=== PATIENT | male | born 1935 | race Caucasian/White ===

== ENCOUNTER 2016-10-31 | Outpatient (CLI) | payer MEDICARE, OTHER | END 2016-10-31 22:33 | disposition critical access hospital (66) | CPT/HCPCS: A0425; A0429 ==

== ENCOUNTER 2016-10-31 22:32 | Emergency (ER) | payer MEDICARE, OTHER | END 2016-11-01 01:50 | disposition home or self-care (01) | DX: R41.82 Altered mental status, unspecified (principal); I10 Essential (primary) hypertension; E10.42 Type 1 diabetes mellitus with diabetic polyneuropathy; Z87.891 Personal history of nicotine dependence; Z79.4 Long term (current) use of insulin ==

== ENCOUNTER 2016-11-22 11:10 | Outpatient (CLI) | payer MEDICARE, OTHER | END 2016-11-22 11:11 | disposition home or self-care (01) | DX: E11.621 Type 2 diabetes mellitus with foot ulcer (principal); E11.39 Type 2 diabetes mellitus with other diabetic ophthalmic complication; I10 Essential (primary) hypertension ==

== ENCOUNTER 2017-01-31 08:08 | Outpatient (CLI) | payer MEDICARE, OTHER | END 2017-01-31 08:09 | disposition home or self-care (01) | DX: E11.39 Type 2 diabetes mellitus with other diabetic ophthalmic complication (principal) ==

== ENCOUNTER 2017-04-21 07:51 | Outpatient (CLI) | payer MEDICARE, OTHER ==
[2017-04-21 16:12] LABS: ALBUMIN/GLOBULIN RATIO 1.1 (1.0-2.2); BILIRUBIN,TOTAL 0.8 mg/dL (0.2-1.0); CALCIUM 8.8 mg/dL (8.5-10.3); CREATININE 1.1 mg/dL (0.6-1.2); POTASSIUM 4.2 mmol/L (3.5-5.0)
[2017-04-21 16:33] LABS: HEMOGLOBIN A1C 0.68 g/dL
== END 2017-04-21 07:52 | disposition home or self-care (01) ==
LOC: LAB.WCP 07:51
PROVIDERS: ATTEND Family Medicine
DX: E11.39 Type 2 diabetes mellitus with other diabetic ophthalmic complication (principal)
CPT/HCPCS: 36415; 80053; 83036

== ENCOUNTER 2017-06-12 09:55 | Outpatient (CLI) | payer MEDICARE, OTHER | END 2017-06-12 09:56 | disposition home or self-care (01) | LOC: LAB.WCP 09:55 | PROVIDERS: ATTEND Family Medicine | DX: L97.809 Non-pressure chronic ulcer of other part of unspecified lower leg with unspecified severity (principal) | CPT/HCPCS: 87070; 87205 ==

== ENCOUNTER 2017-07-30 12:58 | Outpatient (CLI) | payer MEDICARE, OTHER ==
[2017-07-30 12:41] LABS: BASOPHILS % (AUTO) 0.6 %; EOSINOPHILS # (AUTO) 0.4 10^3/uL (0.0-0.7); EOSINOPHILS % (AUTO) 6.5 %; HCT - HEMATOCRIT 36.6 % (42.0-52.0); HGB - HEMOGLOBIN 12.2 g/dL (14.0-18.0); LYMPHOCYTES # (AUTO) 1.6 10^3/uL (1.5-3.5); LYMPHOCYTES % (AUTO) 29.5 %; MEAN CORPUSCULAR HEMOGLOBIN 31.3 pg (27.0-31.0); MEAN CORPUSCULAR HGB CONC 33.4 g/dL (32.0-36.0); MEAN CORPUSCULAR VOLUME 93.6 fL (80.0-94.0); MEAN PLATELET VOLUME 11.5 fL (7.4-11.4); MONOCYTES # (AUTO) 0.5 10^3/uL (0.0-1.0); MONOCYTES % (AUTO) 9.4 %; NEUTROPHILS # (AUTO) 2.9 10^3/uL (1.5-6.6); RED CELL DISTRIBUTION WIDTH 13.6 % (12.0-15.0); UNCORRECTED WHITE BLOOD COUNT 5.4 x10^3/uL; WHITE BLOOD COUNT 5.4 x10^3/uL (4.8-10.8)
[2017-07-30 13:07] LABS: WBC MORPHOLOGY (MULTIPLE) 1+ REACTIVE LYMPHS (NORMAL)
[2017-07-30 13:12] LABS: ALBUMIN/GLOBULIN RATIO 1.2 (1.0-2.2); BILIRUBIN,TOTAL 0.7 mg/dL (0.2-1.0); BUN - BLOOD UREA NITROGEN 23 mg/dL (6-20); CALCIUM 8.9 mg/dL (8.5-10.3); CARBON DIOXIDE - CO2 29 mmol/L (21-32); CHLORIDE 100 mmol/L (101-111); CHOL/HDL RATIO 2.5 (<5.0); CHOLESTEROL 78 mg/dL; CREATININE 1.1 mg/dL (0.6-1.2); GFR - MDRD 64 (>89); GLUCOSE 215 mg/dL (70-100); HDL CHOLESTEROL 31 mg/dL; LDL/HDL RATIO 1.2 (<3.6); POTASSIUM 4.2 mmol/L (3.5-5.0); SODIUM 135 mmol/L (135-145); TRIGLYCERIDES 45 mg/dL; VLDL CHOLESTEROL 9 mg/dL
[2017-07-30 13:15] LABS: HEMOGLOBIN A1C 0.74 g/dL
== END 2017-07-30 12:59 | disposition home or self-care (01) ==
LOC: LAB.WCP 12:58
PROVIDERS: ATTEND Family Medicine
DX: I10 Essential (primary) hypertension (principal); E11.9 Type 2 diabetes mellitus without complications; E78.5 Hyperlipidemia, unspecified
CPT/HCPCS: 36415; 80053; 80061; 83036; 85025

== ENCOUNTER 2017-09-02 20:28 | Outpatient (CLI) | payer MEDICARE, OTHER | END 2017-09-02 20:29 | disposition EMS.NT | LOC: EMS 20:28 | PROVIDERS: ATTEND Surgery | DX: Z03.89 Encounter for observation for other suspected diseases and conditions ruled out (principal); W01.0XXA Fall on same level from slipping, tripping and stumbling without subsequent striking against object, initial encounter; Y92.003 Bedroom of unspecified non-institutional (private) residence as the place of occurrence of the external cause ==

== ENCOUNTER 2017-10-28 08:00 | Outpatient (CLI) | payer MEDICARE, OTHER ==
[2017-10-28 13:00] LABS: CREATININE 1.1 mg/dL (0.6-1.2)
[2017-10-28 14:15] LABS: HB2 TOTAL 12.7 g/dL; HEMOGLOBIN A1C 1.14 g/dL; HEMOGLOBIN A1C % 10.4 % (4.6-6.2)
== END 2017-10-28 08:01 | disposition home or self-care (01) ==
LOC: LAB.WCP 08:00
PROVIDERS: ATTEND Family Medicine
DX: E11.9 Type 2 diabetes mellitus without complications (principal); L97.822 Non-pressure chronic ulcer of other part of left lower leg with fat layer exposed
CPT/HCPCS: 36415; 80048; 83036

== ENCOUNTER 2018-01-05 00:03 | Outpatient (CLI) | payer MEDICARE, OTHER | END 2018-01-05 00:04 | disposition critical access hospital (66) | LOC: EMS 00:03 | PROVIDERS: ATTEND Surgery | DX: R53.1 Weakness (principal) | CPT/HCPCS: A0425; A0427 ==

== ENCOUNTER 2018-01-05 00:22 | Emergency (ER) | payer MEDICARE, OTHER ==
--- NOTE | 2018-01-05 01:05 | ED Physician Documentation ---
History of Present Illness - Stated complaint Stated Complaint: HYPOGLYCEMIA - Chief complaint Chief Complaint: General - History obtained from History obtained from: Patient, Family - History of Present Illness Timing: Today Pain level now: 0 - Additonal information Additional information: patient checked his blood sugar tonight as per routine, found it to be 66, took his long-acting insulin and had a snack. he does not recall subsequent events until medics were treating him, but staff found him confused, BS was 24 (it is not clear how staff was notified of a problem, as he is independent living, lives alone, and does not recall pulling help cord or notifying anyone of a problem). 911 was called and IV started, 1 amp D50 given with return to baseline level of consciousness and recheck of BS in 170 range Review of Systems Constitutional: reports: Reviewed and negative Cardiac: reports: Reviewed and negative Respiratory: reports: Reviewed and negative GI: reports: Reviewed and negative : denies: Dysuria, Frequency Neurologic: reports: Confused, Altered mental status. denies: Generalized weakness, Focal weakness, Numbness, Headache PD PAST MEDICAL HISTORY - Past Medical History Cardiovascular: Hypertension Respiratory: Other Neuro: Peripheral neuropathy Endocrine/Autoimmune: Type 1 diabetes GI: Ulcers : Benign prostate hypertrophy, None, Incontinence, Nocturia HEENT: Chronic vision loss Psych: None Musculoskeletal: None, Other Derm: None Other Past Medical History: hx of TB. - Past Surgical History Past Surgical History: Yes General: Cholecystectomy, Other Ortho: Other HEENT: Cataracts - Present Medications Home Medications: Ambulatory Orders Medication Instructions Recorded Confirmed Losartan Potassium [Cozaar] 50 mg PO BID 03/31/13 10/31/16 Simvastatin [Zocor] 20 mg PO QPM 03/31/13 10/31/16 Insulin Aspart (Vial) [NovoLOG] 10 - 13 units SUBQ TIDWM 12/30/14 10/31/16 Insulin Glargine,Hum.rec.anlog 20 units SUBQ BID 12/30/14 10/31/16 [Lantus] Carvedilol [Coreg] 6.25 mg PO BID 09/26/15 10/31/16 Cholecalciferol (Vitamin D3) 400 units PO DAILY 08/02/16 10/31/16 [Vitamin D3] raNITIdine [Zantac] 150 mg PO BID 10/31/16 10/31/16 - Allergies Allergies/Adverse Reactions: Allergies Allergy/AdvReac Type Severity Reaction Status Date / Time cortisone [Cortisone] AdvReac Intermediate Respiratory Verified 01/05/18 00:28 - Social History Does the pt smoke?: No Smoking Status: Never smoker Does the pt drink ETOH?: No Does the pt have substance abuse?: No - Immunizations Immunizations are current?: Yes - POLST Patient has POLST: No PD ED PE NORMAL - Vitals Vital signs reviewed: Yes - General General: Alert and oriented X 3, No acute distress, Well developed/nourished - HEENT HEENT: PERRL, EOMI, Moist mucous membranes - Neck Neck: Supple, no meningeal sign - Cardiac Cardiac: RRR, No murmur - Respiratory Respiratory: No respiratory distress, Other (trace right-sided course breath sounds end-expiratory) - Abdomen Abdomen: Soft, Non tender - Derm Derm: Normal color, Warm and dry - Extremities Extremities: No edema - Neuro Neuro: Alert and oriented X 3, toeing stockings 2-12 intact, No motor deficit, No sensory deficit, Normal speech Eye Opening: Spontaneous Motor: Obeys Commands Verbal: Oriented GCS Score: 15 Results - Vitals Vitals: Oxygen O2 Source Room air - Labs Labs: Laboratory Tests 01/04/18 01/05/18 01/05/18 23:28 01:36 01:36 WBC 8.2 RBC 4.01 L Hgb 12.2 L Hct 37.6 L MCV 93.7 MCH 30.4 MCHC 32.4 RDW 14.3 Plt Count 130 MPV 10.3 Neut # 6.1 Lymph # 1.3 L Beaver # 0.6 Eos # 0.2 Baso # 0.0 Absolute Nucleated RBC 0.00 Nucleated RBC % 0.0 Sodium 138 Potassium 3.8 Chloride 102 Carbon Dioxide 27 Anion Gap 9.0 BUN 28 H Creatinine 1.2 Estimated GFR (MDRD) 58 L Glucose 107 H POC Whole Bld Glucose 101 H Calcium 8.8 01/05/18 02:02 WBC RBC Hgb Hct MCV MCH MCHC RDW Plt Count MPV Neut # Lymph # Beaver # Eos # Baso # Absolute Nucleated RBC Nucleated RBC % Sodium Potassium Chloride Carbon Dioxide Anion Gap BUN Creatinine Estimated GFR (MDRD) Glucose POC Whole Bld Glucose 174 H Calcium PD MEDICAL DECISION MAKING - ED course Complexity details: reviewed results, re-evaluated patient, considered differential, d/w patient, d/w family ED course: remained asymptomatic during ED stay. unremarkable w/u. unclear why his blood sugar dropped tonight, but observed in ED few hours and discharge home with outpatient f/u appropriate at this time Departure - Departure Disposition: 01 Home, Self Care Clinical Impression: Hypoglycemia associated with diabetes Condition: Good Instructions: ED Diabetes Hypoglycemia Insulin React Follow-Up: Michael Bullard MD [Primary Care Provider] - Comments: Contact your professor of poultry science for advice as to whether to change your insulin dosing. Discharge Date/Time: 01/05/18 03:48
[2018-01-05 01:40] LABS: BASOPHILS % (AUTO) 0.5 %; EOSINOPHILS # (AUTO) 0.2 10^3/uL (0.0-0.7); EOSINOPHILS % (AUTO) 2.6 %; HGB - HEMOGLOBIN 12.2 g/dL (14.0-18.0); LYMPHOCYTES # (AUTO) 1.3 10^3/uL (1.5-3.5); LYMPHOCYTES % (AUTO) 15.3 %; MEAN CORPUSCULAR HEMOGLOBIN 30.4 pg (27.0-31.0); MEAN CORPUSCULAR HGB CONC 32.4 g/dL (32.0-36.0); MEAN CORPUSCULAR VOLUME 93.7 fL (80.0-94.0); MEAN PLATELET VOLUME 10.3 fL (7.4-11.4); MONOCYTES # (AUTO) 0.6 10^3/uL (0.0-1.0); MONOCYTES % (AUTO) 7.6 %; NEUTROPHILS # (AUTO) 6.1 10^3/uL (1.5-6.6); PLT - PLATELET COUNT 130 10^3/uL (130-450); RED BLOOD COUNT 4.01 10^6/uL (4.70-6.10); RED CELL DISTRIBUTION WIDTH 14.3 % (12.0-15.0); WHITE BLOOD COUNT 8.2 x10^3/uL (4.8-10.8)
[2018-01-05 01:48] LABS: CALCIUM 8.8 mg/dL (8.5-10.3); CREATININE 1.2 mg/dL (0.6-1.2)
--- NOTE | 2018-01-05 02:27 | XRAY Preliminary Report ---
Exam: XR CHEST 2 VIEW X-RAY IMPRESSION: 1. Heart size normal to upper normal. No acute abnormality seen. [facility] SITE ID: [id number]
--- NOTE | 2018-01-05 02:27 | XRAY Report ---
EXAM: CHEST RADIOGRAPHY EXAM DATE: 01/05/2018 01:44 AM. CLINICAL HISTORY: Hypoglycemia. Crackles on the right. COMPARISON: 10/31/2016. TECHNIQUE: 2 views. FINDINGS: Lungs/Pleura: No alveolar consolidation or pleural effusion seen. No pneumothorax. Mediastinum: Heart size normal to upper normal. Other: None. IMPRESSION: 1. Heart size normal to upper normal. No acute abnormality seen. [facility] Referring Provider Line: [phone] SITE ID: [id number]
[2018-01-05 03:32] VITALS: BP 163/58
== END 2018-01-05 03:48 | disposition home or self-care (01) ==
LOC: EDUNIT# → ED 00:22
DX: E10.649 Type 1 diabetes mellitus with hypoglycemia without coma (principal); I10 Essential (primary) hypertension
CPT/HCPCS: 36415; 71046; 80048; 85025; 99283; 99284

== ENCOUNTER 2018-01-30 07:10 | Outpatient (CLI) | payer MEDICARE, OTHER ==
[2018-01-30 13:05] LABS: ALBUMIN 3.5 g/dL (3.2-5.5); ALBUMIN/GLOBULIN RATIO 1.1 (1.0-2.2); BILIRUBIN,TOTAL 0.6 mg/dL (0.2-1.0); CALCIUM 8.2 mg/dL (8.5-10.3); CREATININE 0.6 mg/dL (0.6-1.2); TOTAL PROTEIN 6.7 g/dL (6.7-8.2)
[2018-01-30 13:17] LABS: HB2 TOTAL 12.5 g/dL; HEMOGLOBIN A1C 0.6 g/dL; HEMOGLOBIN A1C % 6.5 % (4.6-6.2)
== END 2018-01-30 07:11 | disposition home or self-care (01) ==
LOC: LAB.WCP 07:10
PROVIDERS: ATTEND Family Medicine
DX: E11.9 Type 2 diabetes mellitus without complications (principal); L97.809 Non-pressure chronic ulcer of other part of unspecified lower leg with unspecified severity; I10 Essential (primary) hypertension
CPT/HCPCS: 36415; 80053; 82043; 83036

== ENCOUNTER 2018-01-31 05:11 | Outpatient (CLI) | payer MEDICARE, OTHER | END 2018-01-31 05:12 | disposition critical access hospital (66) | LOC: EMS 05:11 | PROVIDERS: ATTEND Surgery | DX: R53.1 Weakness (principal); R11.10 Vomiting, unspecified; R05 Cough; R06.02 Shortness of breath; W18.30XA Fall on same level, unspecified, initial encounter; Y92.039 Unspecified place in apartment as the place of occurrence of the external cause | CPT/HCPCS: A0425; A0429 ==

== ENCOUNTER 2018-01-31 05:32 | Inpatient (IN) | payer MEDICARE, OTHER ==
--- NOTE | 2018-01-31 05:49 | ED Physician Documentation ---
PD HPI NVD - Stated complaint Stated Complaint: GLF, N/V, DIABETIC - Chief complaint Chief Complaint: Trauma Hd/Nk - History obtained from History obtained from: Patient - History of Present Illness Timing - onset: Last night (he felt okay yesterday and going to bed. he got up during the night to the bathroom and says he felt weak, lightheaded and then nausea with emesis twice. No diarrhea. He fell/slumped to the floor and could not get back up due to weakness. Caregivers found him on the floor. He thinks he had been there for few hours, lying on her side.) Timing - duration: Hours Timing - details: Abrupt onset, Still present (he still feels some nausea but no further emesis.) Associated symptoms: Near syncope / syncope. No: Fever, Abdominal pain, Chest pain, Loss of appetite Contributing factors: No: Sick contact, Bad food, Travel, Recent antibiotics Similar symptoms before: Has not had sx before Recently seen: Clinic (routine visit with PCP the day prior, without change in med doses.) Review of Systems Constitutional: denies: Fever Nose: denies: Rhinorrhea / runny nose, Congestion Throat: denies: Sore throat Cardiac: denies: Chest pain / pressure, Palpitations, Pedal edema, Calf pain Respiratory: reports: Cough (congested cough for few days, feeling dyspnea.). denies: Dyspnea, Wheezing GI: reports: Nausea, Vomiting. denies: Abdominal Pain, Diarrhea, Hematemesis, Bloody / black stool : denies: Dysuria, Frequency Skin: denies: Abrasion (s), Laceration (s) Musculoskeletal: denies: Neck pain, Back pain Neurologic: reports: Generalized weakness, Near syncope. denies: Focal weakness , Numbness, Syncope, Altered mental status, Headache, Head injury Endocrine: denies: Weight loss, Easy bruising / bleeding PD PAST MEDICAL HISTORY - Past Medical History Past Medical History: Yes Cardiovascular: Hypertension Respiratory: Other Neuro: Peripheral neuropathy Endocrine/Autoimmune: Type 1 diabetes GI: Ulcers : Benign prostate hypertrophy, None, Incontinence, Nocturia HEENT: Chronic vision loss Psych: None Musculoskeletal: None, Other Derm: None - Past Surgical History Past Surgical History: Yes General: Cholecystectomy, Other Ortho: Other HEENT: Cataracts - Present Medications Home Medications: Ambulatory Orders Medication Instructions Recorded Confirmed Losartan Potassium [Cozaar] 50 mg PO BID 03/31/13 01/31/18 Simvastatin [Zocor] 20 mg PO QPM 03/31/13 01/31/18 Insulin Aspart (Vial) [NovoLOG] 10 - 13 units SUBQ TIDWM 12/30/14 01/31/18 Insulin Glargine,Hum.rec.anlog 25 units SUBQ BID 12/30/14 01/31/18 [Lantus] Carvedilol [Coreg] 12.5 mg PO BID 09/26/15 01/31/18 Cholecalciferol (Vitamin D3) 2,000 units PO DAILY 08/02/16 01/31/18 [Vitamin D3] raNITIdine [Zantac] 150 mg PO BID 10/31/16 01/31/18 Pantoprazole [Protonix] 40 mg PO DAILY 01/31/18 01/31/18 - Allergies Allergies/Adverse Reactions: Allergies Allergy/AdvReac Type Severity Reaction Status Date / Time cortisone [Cortisone] AdvReac Intermediate Respiratory Verified 01/31/18 06:01 - Living Situation Living Situation: reports: Alone Living Arrangement: reports: Assisted living - Social History Does the pt smoke?: No Smoking Status: Never smoker Does the pt drink ETOH?: No Does the pt have substance abuse?: No - Family History Family history: reports: Non contributory - Immunizations Immunizations are current?: Yes - POLST Patient has POLST: No PD ED PE NORMAL - Vitals Vital signs reviewed: Yes - General General: Alert and oriented X 3, No acute distress, Well developed/nourished, Other (emesis on his face, does not appear bloody. ) - HEENT HEENT: Atraumatic, Ears normal, Pharynx benign - Neck Neck: Supple, no meningeal sign, No adenopathy - Cardiac Cardiac: RRR, No murmur - Respiratory Respiratory: No respiratory distress. No: Clear bilaterally (congested centrally with cough. coarse/wet sounds more on the left. No wheezing noted. ) - Abdomen Abdomen: Normal bowel sounds, Soft, Non tender, Non distended, No organomegaly - Male Male : Deferred - Rectal Rectal: Deferred - Back Back: No CVA TTP - Derm Derm: Normal color, Warm and dry - Extremities Extremities: No tenderness to palpate, Normal ROM s pain, No edema, No calf tenderness / cord (right leg prosthesis noted. ) - Neuro Neuro: Alert and oriented X 3, rock mason apprentice 2-12 intact, No motor deficit, No sensory deficit, Normal speech Eye Opening: Spontaneous Motor: Obeys Commands Verbal: Oriented GCS Score: 15 Results - Vitals Vitals: Vital Signs - 24 hr 01/31/18 01/31/18 01/31/18 05:39 05:55 05:57 Temperature 36.7 C Heart Rate 82 85 Respiratory 16 19 Rate Blood Pressure 155/96 H O2 Saturation 89 L 95 95 01/31/18 01/31/18 01/31/18 06:15 06:30 07:20 Temperature Heart Rate 82 80 82 Respiratory 21 19 20 Rate Blood Pressure 96/59 L 141/49 H O2 Saturation 93 93 Oxygen O2 Source Nasal cannula Oxygen Flow Rate 2 - Labs Labs: Laboratory Tests 01/31/18 01/31/18 01/31/18 05:43 05:43 05:43 WBC 14.6 H RBC 4.25 L Hgb 12.9 L Hct 39.9 L MCV 93.8 MCH 30.2 MCHC 32.2 RDW 14.2 Plt Count 153 MPV 11.6 H Neut # 12.5 H Lymph # 0.7 L Maries # 1.2 H Eos # 0.0 Baso # 0.0 Absolute Nucleated RBC 0.00 Nucleated RBC % 0.0 Sodium 140 Potassium 3.9 Chloride 103 Carbon Dioxide 28 Anion Gap 9.0 BUN 34 H Creatinine 1.4 H Estimated GFR (MDRD) 48 L Glucose 138 H Calcium 8.5 Magnesium 1.7 Total Bilirubin 1.1 H AST 32 ALT 17 Alkaline Phosphatase 110 Total Creatine Kinase 305 H Troponin I < 0.04 Total Protein 6.6 L Albumin 3.5 Globulin 3.1 Albumin/Globulin Ratio 1.1 Lipase 10 L - Rads (name of study) chest Radiology: Prelim report reviewed, EMP read contemporaneously (significant infiltrates more left than right c/w pneumonia. No effusions. ) PD MEDICAL DECISION MAKING - ED course Complexity details: reviewed results, re-evaluated patient (improved breathing after neb, but still very congested sounds and cough, and sats 89% RA, at 95% on just 2 lpm NC. ), considered differential (cougha nd congestion with hypoxia at 88-89% on RA. General weakness with near syncope and unable to get up. ), d/ w patient Departure - Departure Disposition: 66 [facility] DC/Xfer Clinical Impression: Generalized weakness, Hypoxia, Near syncope CAP (community acquired pneumonia) Qualifiers: Laterality: unspecified laterality Qualified Code(s): J18.9 - Pneumonia, unspecified organism Condition: Stable Record reviewed to determine appropriate education?: Yes
[2018-01-31] MEDS ORDERED: SODIUM CHLORIDE 0.9% 1,000 ML IV ONE (05:51)
[2018-01-31] MEDS ORDERED: ONDANSETRON 4 MG/2 ML VIAL IVP STA (05:51)
[2018-01-31 06:07] LABS: BASOPHILS % (AUTO) 0.3 %; HGB - HEMOGLOBIN 12.9 g/dL (14.0-18.0); LYMPHOCYTES # (AUTO) 0.7 10^3/uL (1.5-3.5); LYMPHOCYTES % (AUTO) 5.1 %; MEAN CORPUSCULAR HEMOGLOBIN 30.2 pg (27.0-31.0); MEAN CORPUSCULAR HGB CONC 32.2 g/dL (32.0-36.0); MEAN CORPUSCULAR VOLUME 93.8 fL (80.0-94.0); MEAN PLATELET VOLUME 11.6 fL (7.4-11.4); MONOCYTES # (AUTO) 1.2 10^3/uL (0.0-1.0); MONOCYTES % (AUTO) 8.5 %; NEUTROPHILS # (AUTO) 12.5 10^3/uL (1.5-6.6); NEUTROPHILS % (AUTO) 86.1 %; PLT - PLATELET COUNT 153 10^3/uL (130-450); RED BLOOD COUNT 4.25 10^6/uL (4.70-6.10); RED CELL DISTRIBUTION WIDTH 14.2 % (12.0-15.0); WHITE BLOOD COUNT 14.6 x10^3/uL (4.8-10.8)
[2018-01-31 06:15] LABS: ALBUMIN 3.5 g/dL (3.2-5.5); ALBUMIN/GLOBULIN RATIO 1.1 (1.0-2.2); BILIRUBIN,TOTAL 1.1 mg/dL (0.2-1.0); CALCIUM 8.5 mg/dL (8.5-10.3); CREATININE 1.4 mg/dL (0.6-1.2); MAGNESIUM 1.7 mg/dL (1.7-2.8); TOTAL PROTEIN 6.6 g/dL (6.7-8.2)
[2018-01-31] MEDS ORDERED: ALBUTEROL NEB 2.5 MG/3 ML INH STA (07:07)
[2018-01-31] MEDS ORDERED: AZITHROMYCIN INJ 500 MG in SODIUM CHLORIDE 0.9% 250 ML IV STA (07:08)
[2018-01-31] MEDS ORDERED: cefTRIAXone 1 GM in SODIUM CHLORIDE 0.9% MINIBAG 100 ML IV STA (07:08)
--- NOTE | 2018-01-31 07:47 | XRAY Report ---
EXAM: CHEST RADIOGRAPHY EXAM DATE: 01/31/2018 07:05 AM. CLINICAL HISTORY: Chest pain left sided. COMPARISON: 10/31/2016. TECHNIQUE: 2 views. FINDINGS: Lungs/Pleura: Diffuse patchy airspace opacities involves the left hemithorax and right paratracheal r egion. No pleural effusion. No pneumothorax. Mediastinum: Heart and mediastinal contours are unremarkable. Other: None. IMPRESSION: Diffuse airspace opacification of the left hemithorax and right paratracheal region, quer y infection, asymmetric edema, hemorrhage. [facility] Referring Provider Line: [phone] SITE ID: [id number]
--- NOTE | 2018-01-31 07:47 | XRAY Preliminary Report ---
Exam: XR CHEST 2 VIEW X-RAY IMPRESSION: Diffuse airspace opacification of the left hemithorax and right paratracheal region, quer y infection, asymmetric edema, hemorrhage. [facility] SITE ID: [id number]
[2018-01-31] MEDS ORDERED: ZOLPIDEM 5 MG TABLET PO PRN (08:10)
[2018-01-31] MEDS ORDERED: ACETAMINOPHEN 325 MG TABLET PO PRN (08:10)
[2018-01-31] MEDS ORDERED: cefTRIAXone 1 GM VIAL IVP SCH (09:00)
[2018-01-31] MEDS ORDERED: SODIUM CHLORIDE 0.9% 1,000 ML IV SCH (09:00)
--- NOTE | 2018-01-31 09:14 | HISTORY & PHYSICAL EXAMINATION ---
Chief Complaint - Chief Complaint Chief Complaint: cough, respiratory congestion, and weakness History of Present Illness - Admitted From Admitted From:: ER - History Obtained From History obtained from: pt - History of Present Illness HPI Comment/Other: Mr. 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 Pt report he had cough, feeling of sickness for over a week. Last night, he got up to the bathroom and felt very weak, lightheaded, nausea, and vomiting twice, then he slumped down the floor, and could not get back up the living room due to the weakness. The caregiver found him in the floor. The caregiver think pt had been on floor for a few hours. Pt report he did not have injury from this episode. He report he had lifesaving call line but he forget to push the bottle. Pt denies fever, chill, chest pain, diarrhea, abdominal pain. In the lab test on ER, pt has significant elevated BUN and Creatinine, and elevated TCK, and elevated WBC. In the CXR, there is diffuse airspace opacification of the left hemithorax and right paratracheal region, query infection, asymmetric edema, hemorrhage. Pt is admitted for evaluation and treatment of pneumonia, acute renal injury, weakness. History - Past Medical History Cardiovascular: reports: Hypertension Respiratory: reports: Other Neuro: reports: Peripheral neuropathy Endocrine/Autoimmune: reports: Type 1 diabetes GI: reports: Ulcers : reports: Benign prostate hypertrophy, None, Incontinence, Nocturia HEENT: reports: Chronic vision loss Psych: reports: None Musculoskeletal: reports: None, Other Derm: reports: None MRSA Hx?: No - Past Surgical History General: reports: Cholecystectomy, Other Ortho: reports: Other HEENT: reports: Cataracts - Family & Social History Family History: Mother: (father at 83yrs from cancer, Mother at 84 yrs from DM complications), Father: Family History Comment/Other: Pt is living at [facility], living alone. He has two daughters, one is living at [facility], another one just moved to [place]. Living arrangement: Assisted living Living Situation: Alone Social History Notes: Pt denies cigarette smoking, alcohol and drug problem - Substance History Use: Uses substance without health or social issues: NONE Abuse: Recurrent use of substance despite neg consequences: NONE - POLST Patient has POLST: No POLST Status: Full Code Meds/Allgy - Home Medications Home Medications: Ambulatory Orders Medication Instructions Recorded Confirmed Losartan Potassium [Cozaar] 50 mg PO BID 03/31/13 01/31/18 Simvastatin [Zocor] 20 mg PO QPM 03/31/13 01/31/18 Insulin Aspart (Vial) [NovoLOG] 10 - 13 units SUBQ TIDWM 12/30/14 01/31/18 Insulin Glargine,Hum.rec.anlog 25 units SUBQ BID 12/30/14 01/31/18 [Lantus] Cholecalciferol (Vitamin D3) 2,000 units PO DAILY 08/02/16 01/31/18 [Vitamin D3] raNITIdine [Zantac] 150 mg PO BID 10/31/16 01/31/18 Carvedilol [Coreg] 12.5 mg PO BID 01/31/18 01/31/18 Pantoprazole [Protonix] 40 mg PO QDAC 01/31/18 01/31/18 - Allergies Allergies/Adverse Reactions: Allergies Allergy/AdvReac Type Severity Reaction Status Date / Time cortisone [Cortisone] AdvReac Intermediate Respiratory Verified 01/31/18 06:01 Review of Systems - Constitutional Constitutional: reports: Fatigue, Weakness. denies: Fever, Chills, Malaise, Poor appetite, Diaphoresis, Night sweats, Weight gain, Weight loss - Eyes Eyes: denies: Pain, Irritation, Amaurosis, Blurred vision, Spots in vision, Field loss, Vision loss, Dipolpia - Ears, Nose & Throat Ears, Nose & Throat: denies: Ear pain, Hearing loss, Hearing aids, Tinnitus, Vertigo, Nasal pain, Nasal discharge, Nosebleeds, Sore throat, Hoarseness, Mouth lesions, Bleeding gums, Dental decay, Dental pain - Cardiovascular Cariovascular: denies: Irregular heart rate, Palpitations, Chest pain, Edema, Lightheadedness, Syncope, Exertional dyspnea, Decr. exercise tolerance - Respiratory Respiratory: reports: Cough, Sputum production, Wheezing, SOB with exertion. denies: Snoring, Hemoptysis, Orthopnea, SOB at rest, Apnea, Pleuritic pain - Gastrointestinal Gastrointestinal: reports: Nausea, Vomiting. denies: Abdominal pain, Abdominal distention, Constipation, Diarrhea, Change in bowel habits, Rectal bleeding, Black stools, Bloody stools, Bile emesis, Alejandro blood emesis, Coffee grounds emesis, Reflux/heartburn, Poor appetite - Genitourinary Genitourinary: denies: Dysuria, Frequency, Urgency, Hematuria, Incontinence, Flank pain, Nocturia, Urethral discharge - Musculoskeletal Musculoskeletal: denies: Muscle pain, Back pain, Muscle aches, Stiffness, Limited range of motion, Muscle weakness, Gout, Joint pain - Integumentary Integumentary: denies: Rash, Lesions, Dryness, Lumps, Pigment changes - Neurological Neurological: reports: General weakness. denies: Focal weakness, Headache, Dizziness, Numbness, Memory problems, Pre-existing deficit, Abnormal gait, Seizures, Incoordination, Slurred speech - Psychiatric Psychiatric: denies: Depression, Anxiety, Suicidal, Delusions, Hallucinations, Homicidal - Endocrine Endocrine: denies: Polyuria, Polydypsia, Polyphagia, Intolerance to cold - Hematologic/Lymphatic Hematologic/Lymphatic: denies: Anemia, Bruising, Petechiae, Blood clots, Lymphadenopathy, Bleeding tendencies Exam - Vital Signs Reviewed Vital Signs: Yes Vital Signs: Vital Signs x48h Pulse Resp BP Pulse Ox 01/31/18 08:45 80 20 140/82 H 92 - Physical Exam General Appearance: positive: Alert, Mild distress. negative: Lethargic Eyes Bilateral: positive: Normal inspection, PERRL, No lid inflammation, Conjunctivae nml ENT: positive: ENT inspection nml, Pharynx nml, No signs of dehydration. negative: Purulent nasal drainage, Pharyngeal erythema, Oral lesions Neck: positive: Nml inspection, Thyroid nml, No JVD, Trachea midline. negative : Thyromegaly, Lymphadenopathy (R), Lymphadenopathy (L), Stiff neck, Swelling/ bruising, Tracheal deviation Respiratory: positive: Chest non-tender, No respiratory distress, Rhonchi. negative: Wheezes, Rales Cardiovascular: positive: Regular rate & rhythm, No murmur, No gallop. negative : Irregularly irregular, Extrasystoles, Tachycardia, Bradycardia, JVD present, Systolic murmur, Diastolic murmur Peripheral Pulses: positive: 2+ Abdomen: positive: Non-tender, No organomegaly, Nml bowel sounds, No distention. negative: Tenderness, Guarding, Rebound Back: positive: Nml inspection. negative: CVA tenderness (R), CVA tenderness (L ) Skin: positive: Color nml, No rash, Warm, Dry. negative: Cyanosis, Diaphoresis , Pallor Extremities: positive: Non-tender, Other (right BKA). negative: Calf tenderness , Joint swelling, Naomi's sign/cords Neurologic/Psychiatric: positive: Sensation nml. negative: Mood/affect nml, Sensory loss, Facial droop, Slurred/abnml speech, Depressed mood/affect Conclusion/Plan - Problem List (1) CAP (community acquired pneumonia) Conclusion/Plan: elevated WBC, CXR indicate pneumonia, cough and respiratory congestion but without fever, chill. start Azithyromycin Rocephin follow up sputum culture Supplement O2 NC as needed Qualifiers: Laterality: unspecified laterality Qualified Code(s): J18.9 - Pneumonia, unspecified organism (2) Acute kidney injury Conclusion/Plan: believe it is prerenal secondary to the dehydration ER start to have IVF recheck daily lab monitor (3) Dehydration Conclusion/Plan: start IVF, monitor on lab (4) Diabetes mellitus type 1 Conclusion/Plan: resume home Lantus, add slide scale check A1C hypoglycemia (5) HTN (hypertension) Conclusion/Plan: stable, resume home meds (6) Generalized weakness Conclusion/Plan: will consult with PT/OT (7) DVT prophylaxis Conclusion/Plan: Lovenox and SCD (8) Full code status Conclusion/Plan: pt request full code status - Lab Results Fish Bones: 01/31/18 05:43 01/31/18 05:43 Core Measures - Anticipated LOS I expect patient to be DC'd or transferred within 96 hours.: Yes - DVT/VTE - Prophylaxis VTE/DVT Device ordered at admit?: Yes VTE/DVT Prophylaxis med ordered at admit?: Yes
[2018-01-31] MEDS ORDERED: IPRATROPIUM/ALBUTEROL 3 ML NEB INH PRN (09:15)
[2018-01-31 10:19] LABS: HB2 TOTAL 13.3 g/dL; HEMOGLOBIN A1C 0.62 g/dL; HEMOGLOBIN A1C % 6.4 % (4.6-6.2)
[2018-01-31] MEDS: SODIUM CHLORIDE 0.9% 1,000 ML IV SCH ×2 (10:42→22:22)
[2018-01-31] MEDS: INSULIN ASPART 300 UNIT/3 ML PEN SUBQ SCH ×4 (11:50→20:38)
[2018-01-31] MEDS: SODIUM CHLORIDE FLUSH 0.9% 10 ML SYRINGE IVP SCH (16:43)
[2018-01-31] MEDS: ONDANSETRON 4 MG/2 ML VIAL IVP PRN (17:58)
[2018-01-31] MEDS: SODIUM CHLORIDE FLUSH 0.9% 10 ML SYRINGE IVP PRN (17:59)
[2018-01-31] MEDS: INSULIN GLARGINE 300 UNIT/3 ML PEN SUBQ SCH (20:37)
[2018-01-31] MEDS: ATORVASTATIN 10 MG TABLET PO SCH (20:38)
[2018-01-31] MEDS: LOSARTAN 50 MG TABLET PO SCH (20:39)
[2018-01-31] MEDS: CARVEDILOL 12.5 MG TABLET PO SCH (20:39)
[2018-02-01] MEDS ORDERED: MIN OIL/DIMETHICON/COCONUT OIL 92 GM TUBE TOP PRN (01:19)
[2018-02-01] MEDS: SODIUM CHLORIDE FLUSH 0.9% 10 ML SYRINGE IVP SCH ×3 (01:23→17:22)
[2018-02-01 05:49] LABS: BASOPHILS % (AUTO) 0.1 %; EOSINOPHILS % (AUTO) 0.2 %; HGB - HEMOGLOBIN 10.2 g/dL (14.0-18.0); LYMPHOCYTES % (AUTO) 17.9 %; MEAN CORPUSCULAR HEMOGLOBIN 30.4 pg (27.0-31.0); MEAN CORPUSCULAR HGB CONC 31.9 g/dL (32.0-36.0); MEAN CORPUSCULAR VOLUME 95.1 fL (80.0-94.0); MEAN PLATELET VOLUME 11.5 fL (7.4-11.4); MONOCYTES # (AUTO) 0.9 10^3/uL (0.0-1.0); MONOCYTES % (AUTO) 7.5 %; NEUTROPHILS # (AUTO) 8.5 10^3/uL (1.5-6.6); NEUTROPHILS % (AUTO) 74.3 %; PLT - PLATELET COUNT 112 10^3/uL (130-450); RED BLOOD COUNT 3.36 10^6/uL (4.70-6.10); RED CELL DISTRIBUTION WIDTH 14.1 % (12.0-15.0); WHITE BLOOD COUNT 11.4 x10^3/uL (4.8-10.8)
[2018-02-01 06:02] LABS: ALBUMIN 2.7 g/dL (3.2-5.5); ALBUMIN/GLOBULIN RATIO 1.1 (1.0-2.2); BILIRUBIN,TOTAL 0.8 mg/dL (0.2-1.0); CALCIUM 7.5 mg/dL (8.5-10.3); CREATININE 1.1 mg/dL (0.6-1.2); MAGNESIUM 1.8 mg/dL (1.7-2.8); TOTAL PROTEIN 5.2 g/dL (6.7-8.2)
[2018-02-01] MEDS: INSULIN ASPART 300 UNIT/3 ML PEN SUBQ SCH ×7 (08:01→20:40)
[2018-02-01] MEDS: SODIUM CHLORIDE 0.9% 1,000 ML IV SCH (08:18)
[2018-02-01] MEDS: cefTRIAXone 1 GM in SODIUM CHLORIDE 0.9% MINIBAG 100 ML IV SCH (08:18)
[2018-02-01] MEDS: ENOXAPARIN 40 MG/0.4 ML SYRINGE SUBQ SCH (08:19)
[2018-02-01] MEDS: CARVEDILOL 12.5 MG TABLET PO SCH ×2 (08:19→20:52)
[2018-02-01] MEDS: CHOLECALCIFEROL 1,000 UNIT TABLET PO SCH (08:19)
[2018-02-01] MEDS: POLYETHYLENE GLYCOL 3350 17 GM PACKET PO SCH (08:20)
[2018-02-01] MEDS: LOSARTAN 50 MG TABLET PO SCH ×2 (08:20→17:21)
[2018-02-01] MEDS: FAMOTIDINE 20 MG TABLET PO SCH (08:20)
[2018-02-01] MEDS: INSULIN GLARGINE 300 UNIT/3 ML PEN SUBQ SCH ×2 (08:24→20:52)
[2018-02-01] MEDS ORDERED: SODIUM CHLORIDE 0.9% 1,000 ML IV SCH (09:07)
[2018-02-01] MEDS: AZITHROMYCIN INJ 500 MG in SODIUM CHLORIDE 0.9% 250 ML IV SCH (09:38)
[2018-02-01] MEDS ORDERED: CARVEDILOL 12.5 MG TABLET PO SCH (10:00)
[2018-02-01] MEDS ORDERED: CALCIUM GLUCONATE 1,000 MG in SODIUM CHLORIDE 0.9% 50 ML IV ONE (12:00)
--- NOTE | 2018-02-01 14:45 | PROVIDER PROGRESS NOTE ---
Subjective - Prog Note Date Prog Note Date: 02/01/18 - Subjective Pt reports feeling: Improved Subjective: pt report he feel better than yesterday. No fever, chill, CP. Cough is better controlled. Current Medications - Current Medications Current Medications: Active Medications Acetaminophen (Tylenol) 650 mg PO Q4HR PRN PRN Reason: Pain 1 to 4 Last Admin: 01/31/18 22:16 Dose: 650 mg Albuterol/Ipratropium (Duoneb) 3 ml INH Q4HR PRN PRN Reason: Wheezing Last Admin: 01/31/18 16:08 Dose: 3 ml Atorvastatin Calcium (Lipitor) 10 mg PO QPM [facility] Last Admin: 01/31/18 20:38 Dose: 10 mg Carvedilol (Coreg) 12.5 mg PO BID [facility] Last Admin: 02/01/18 08:19 Dose: 12.5 mg Cholecalciferol (Vitamin D3) 2,000 unit PO DAILY [facility] Last Admin: 02/01/18 08:19 Dose: 2,000 unit Enoxaparin Sodium (Lovenox) 40 mg SUBQ DAILY [facility] Last Admin: 02/01/18 08:19 Dose: 40 mg Famotidine (Pepcid) 20 mg PO DAILY [facility] Last Admin: 02/01/18 08:20 Dose: 20 mg Azithromycin 500 mg/ Sodium (Chloride) 250 mls @ 250 mls/hr IV DAILY [facility] Last Infusion: 02/01/18 10:54 Dose: Infused Ceftriaxone Sodium 1 gm/ (Sodium Chloride) 100 mls @ 200 mls/hr IV DAILY [facility] Last Infusion: 02/01/18 09:28 Dose: Infused Sodium Chloride (Normal Saline 0.9%) 1,000 mls @ 50 mls/hr IV .Q20H [facility] Last Admin: 02/01/18 09:19 Dose: Not Given Insulin Aspart (Novolog) 5 unit SUBQ TIDWM YAA PRN Reason: Protocol Last Admin: 02/01/18 12:12 Dose: 5 unit Insulin Aspart (Novolog) 2 - 10 unit SUBQ 0800,1200,1700,2100 YAA PRN Reason: Protocol Last Admin: 02/01/18 12:12 Dose: 4 unit Insulin Glargine (Lantus Solostar) 25 unit SUBQ BID [facility] Last Admin: 02/01/18 08:24 Dose: 25 unit Losartan Potassium (Cozaar) 50 mg PO BID [facility] Last Admin: 02/01/18 08:20 Dose: 50 mg Mineral Oil (Cavilon) 1 applic TOP PRN PRN PRN Reason: Skin Care Last Admin: 02/01/18 02:22 Dose: 1 applic Ondansetron HCl (Zofran Inj) 4 mg IVP Q6HR PRN PRN Reason: Nausea / Vomiting Last Admin: 01/31/18 17:58 Dose: 4 mg Polyethylene Glycol (Miralax) 17 gm PO DAILY [facility] Last Admin: 02/01/18 08:20 Dose: Not Given Sodium Chloride (Normal Saline Flush 0.9%) 10 ml IVP PRN PRN PRN Reason: NEEDED PER PROVIDER ORDERS Last Admin: 01/31/18 17:59 Dose: 10 ml Sodium Chloride (Normal Saline Flush 0.9%) 10 ml IVP 0100,0900,1700 [facility] Last Admin: 02/01/18 08:20 Dose: Not Given Zolpidem Tartrate (Ambien) 5 mg PO QPM PRN PRN Reason: Insomnia Losartan Potassium [Cozaar] 50 mg PO BID 03/31/13 Simvastatin [Zocor] 20 mg PO QPM 03/31/13 Insulin Aspart (Vial) [NovoLOG] 10 - 13 units SUBQ TIDWM 12/30/14 Insulin Glargine,Hum.rec.anlog [Lantus] 25 units SUBQ BID 12/30/14 Cholecalciferol (Vitamin D3) [Vitamin D3] 2,000 units PO DAILY 08/02/16 raNITIdine [Zantac] 150 mg PO BID 10/31/16 Carvedilol [Coreg] 12.5 mg PO BID 01/31/18 Pantoprazole [Protonix] 40 mg PO QDAC 01/31/18 Objective - Vital Signs/Intake & Output Reviewed Vital Signs: Yes Vital Signs: Vital Signs x48h Temp Pulse Resp BP Pulse Ox 02/01/18 13:47 36.7 C 70 18 148/50 H 99 02/01/18 07:41 36.9 C 69 20 166/61 H 93 Intake & Output: Intake & Output 01/29/18 01/30/18 01/31/18 02/01/18 23:59 23:59 23:59 23:59 Intake Total 3907.000 1835.417 Balance 3907.000 1835.417 - Objective General Appearance: positive: No acute distress, Alert. negative: Lethargic Eyes Bilateral: positive: Normal inspection, PERRL, No lid inflammation, Conjunctivae nml ENT: positive: ENT inspection nml, Pharynx nml, No signs of dehydration. negative: Purulent nasal drainage, Pharyngeal erythema, Oral lesions Neck: positive: Nml inspection, Thyroid nml, No JVD, Trachea midline. negative : Thyromegaly, Lymphadenopathy (R), Lymphadenopathy (L), Stiff neck, Carotid bruit, Swelling/bruising, Tracheal deviation Respiratory: positive: Chest non-tender, No respiratory distress, Breath sounds nml. negative: Wheezes, Rales, Rhonchi Cardiovascular: positive: Regular rate & rhythm, No murmur, No gallop. negative : Irregularly irregular, Extrasystoles, Tachycardia, Bradycardia, Systolic murmur, Diastolic murmur Peripheral Pulses: 2+ Radial (R), 2+ Radial (L), 2+ Dorsalis pedis (R), 2+ Dorsalis pedis (L) Abdomen: positive: Non-tender, No organomegaly, Nml bowel sounds, No distention. negative: Tenderness, Guarding, Rebound Back: positive: Nml inspection. 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 negative: Cyanosis, Diaphoresis, Pallor Extremities: positive: Non-tender, Full ROM, Other (BKA at right lower extremity ). negative: Calf tenderness, Joint swelling, Naomi's sign/cords Neurologic/Psychiatric: positive: Sensation nml. negative: Sensory loss, Facial droop, Slurred/abnml speech, Depressed mood/affect - Lab Results Fish Bones: 02/01/18 05:08 02/01/18 05:08 Other Labs: Lab Results x24hrs 02/01/18 02/01/18 02/01/18 Range/Units 08:05 05:08 05:08 WBC 11.4 H (4.8-10.8) x10^3/uL RBC 3.36 L (4.70-6.10) 10^6/uL Hgb 10.2 L (14.0-18.0) g/dL Hct 31.9 L (42.0-52.0) % MCV 95.1 H (80.0-94.0) fL MCH 30.4 (27.0-31.0) pg MCHC 31.9 L (32.0-36.0) g/dL RDW 14.1 (12.0-15.0) % Plt Count 112 L (130-450) 10^3/uL MPV 11.5 H (7.4-11.4) fL Neut # 8.5 H (1.5-6.6) 10^3/uL Lymph # 2.0 (1.5-3.5) 10^3/uL [place] # 0.9 (0.0-1.0) 10^3/uL Eos # 0.0 (0.0-0.7) 10^3/uL Baso # 0.0 (0.0-0.1) 10^3/uL Absolute Nucleated RBC 0.00 x10^3/uL Nucleated RBC % 0.0 /100WBC Sodium 137 (135-145) mmol/L Potassium 3.7 (3.5-5.0) mmol/L Chloride 107 (101-111) mmol/L Carbon Dioxide 26 (21-32) mmol/L Anion Gap 4.0 L (6-13) BUN 38 H (6-20) mg/dL Creatinine 1.1 (0.6-1.2) mg/dL Estimated GFR (MDRD) 64 L (>89) Glucose 267 H (70-100) mg/dL Lactic Acid 1.0 (0.5-2.2) mmol/L Calcium 7.5 L (8.5-10.3) mg/dL Magnesium 1.8 (1.7-2.8) mg/dL Total Bilirubin 0.8 (0.2-1.0) mg/dL AST 69 H (10-42) IU/L ALT 27 (10-60) IU/L Alkaline Phosphatase 74 (42-121) IU/L Total Protein 5.2 L (6.7-8.2) g/dL Albumin 2.7 L (3.2-5.5) g/dL Globulin 2.5 (2.1-4.2) g/dL Albumin/Globulin Ratio 1.1 (1.0-2.2) Assessment/Plan - Problem List (1) CAP (community acquired pneumonia) Impression: (1) CAP (community acquired pneumonia) Conclusion/Plan: 99% Sats on 2 liter of O2, pt feel better than yesterday. Pt had 38 degree low degree fever on last night, Pt did not have fever today blood culture, follow up continue antibiotic follow up sputum culture continue INH, O2 supplement as needed elevated WBC, CXR indicate pneumonia, cough and respiratory congestion but without fever, chill. start Azithyromycin Rocephin follow up sputum culture Supplement O2 NC as needed Qualifiers: Laterality: unspecified laterality Qualified Code(s): J18.9 - Pneumonia, unspecified organism (2) Acute kidney injury Conclusion/Plan: great improved. Creatinine 1.1, GFR 64 today reduce IVF to 50 cc/h, precaution of fluid overload continue hydration believe it is prerenal secondary to the dehydration ER start to have IVF recheck daily lab monitor (3) Dehydration Conclusion/Plan: continue hydration, at 50 cc/h start IVF, monitor on lab (4) Diabetes mellitus type 1 Conclusion/Plan: A1C 6.4 indicate having good glucose control for DM1 continue slide scale to moderate continue hypoglycemia protocol resume home Lantus, add slide scale check A1C hypoglycemia (5) HTN (hypertension) Conclusion/Plan: stable, resume home meds (6) Generalized weakness Conclusion/Plan: continue PT/OT will consult with PT/OT Qualifiers: Laterality: unspecified laterality Qualified Code(s): J18.9 - Pneumonia, unspecified organism
[2018-02-01] MEDS: ATORVASTATIN 10 MG TABLET PO SCH (20:52)
[2018-02-02 04:51] LABS: BASOPHILS % (AUTO) 0.4 %; EOSINOPHILS # (AUTO) 0.1 10^3/uL (0.0-0.7); EOSINOPHILS % (AUTO) 1.1 %; HGB - HEMOGLOBIN 10.1 g/dL (14.0-18.0); LYMPHOCYTES # (AUTO) 1.8 10^3/uL (1.5-3.5); LYMPHOCYTES % (AUTO) 17.2 %; MEAN CORPUSCULAR HEMOGLOBIN 30.7 pg (27.0-31.0); MEAN CORPUSCULAR HGB CONC 32.4 g/dL (32.0-36.0); MEAN CORPUSCULAR VOLUME 94.7 fL (80.0-94.0); MEAN PLATELET VOLUME 11.3 fL (7.4-11.4); MONOCYTES # (AUTO) 0.9 10^3/uL (0.0-1.0); MONOCYTES % (AUTO) 8.7 %; NEUTROPHILS # (AUTO) 7.5 10^3/uL (1.5-6.6); NEUTROPHILS % (AUTO) 72.6 %; PLT - PLATELET COUNT 124 10^3/uL (130-450); RED CELL DISTRIBUTION WIDTH 14.1 % (12.0-15.0); WHITE BLOOD COUNT 10.3 x10^3/uL (4.8-10.8)
[2018-02-02 05:11] LABS: ALBUMIN 2.8 g/dL (3.2-5.5); BILIRUBIN,TOTAL 0.7 mg/dL (0.2-1.0); CALCIUM 7.6 mg/dL (8.5-10.3); TOTAL PROTEIN 5.5 g/dL (6.7-8.2)
[2018-02-02] MEDS: SODIUM CHLORIDE FLUSH 0.9% 10 ML SYRINGE IVP SCH ×3 (06:11→16:45)
[2018-02-02] MEDS ORDERED: CALCIUM GLUCONATE 1,000 MG in SODIUM CHLORIDE 0.9% 50 ML IV ONE (07:31)
[2018-02-02] MEDS: INSULIN ASPART 300 UNIT/3 ML PEN SUBQ SCH ×4 (08:05→20:48)
[2018-02-02] MEDS: ENOXAPARIN 40 MG/0.4 ML SYRINGE SUBQ SCH (08:15)
[2018-02-02] MEDS: cefTRIAXone 1 GM in SODIUM CHLORIDE 0.9% MINIBAG 100 ML IV SCH (08:15)
[2018-02-02] MEDS: CHOLECALCIFEROL 1,000 UNIT TABLET PO SCH (08:21)
[2018-02-02] MEDS: LOSARTAN 50 MG TABLET PO SCH ×2 (08:21→20:50)
[2018-02-02] MEDS: FAMOTIDINE 20 MG TABLET PO SCH (08:21)
[2018-02-02] MEDS: CARVEDILOL 12.5 MG TABLET PO SCH ×2 (08:21→20:47)
[2018-02-02] MEDS: POLYETHYLENE GLYCOL 3350 17 GM PACKET PO SCH (08:22)
[2018-02-02] MEDS: INSULIN GLARGINE 300 UNIT/3 ML PEN SUBQ SCH ×2 (08:24→20:49)
[2018-02-02] MEDS: AZITHROMYCIN INJ 500 MG in SODIUM CHLORIDE 0.9% 250 ML IV SCH (09:19)
--- NOTE | 2018-02-02 11:10 | PROVIDER PROGRESS NOTE ---
Subjective - Prog Note Date Prog Note Date: 02/02/18 - Subjective Pt reports feeling: Improved Subjective: pt is comfortably sitting at chair to eat breakfast. pt state he is getting improved. No fever, chill, CP Current Medications - Current Medications Current Medications: Active Medications Acetaminophen (Tylenol) 650 mg PO Q4HR PRN PRN Reason: Pain 1 to 4 Last Admin: 01/31/18 22:16 Dose: 650 mg Albuterol/Ipratropium (Duoneb) 3 ml INH Q4HR PRN PRN Reason: Wheezing Last Admin: 01/31/18 16:08 Dose: 3 ml Atorvastatin Calcium (Lipitor) 10 mg PO QPM [facility] Last Admin: 02/01/18 20:52 Dose: 10 mg Carvedilol (Coreg) 12.5 mg PO BID [facility] Last Admin: 02/02/18 08:21 Dose: 12.5 mg Cholecalciferol (Vitamin D3) 2,000 unit PO DAILY [facility] Last Admin: 02/02/18 08:21 Dose: 2,000 unit Enoxaparin Sodium (Lovenox) 40 mg SUBQ DAILY [facility] Last Admin: 02/02/18 08:15 Dose: 40 mg Famotidine (Pepcid) 20 mg PO DAILY [facility] Last Admin: 02/02/18 08:21 Dose: 20 mg Azithromycin 500 mg/ Sodium (Chloride) 250 mls @ 250 mls/hr IV DAILY [facility] Last Infusion: 02/02/18 10:20 Dose: Infused Ceftriaxone Sodium 1 gm/ (Sodium Chloride) 100 mls @ 200 mls/hr IV DAILY [facility] Last Infusion: 02/02/18 08:45 Dose: Infused Insulin Aspart (Novolog) 2 - 10 unit SUBQ 0800,1200,1700,2100 [facility] PRN Reason: Protocol Last Admin: 02/02/18 12:12 Dose: 2 unit Insulin Glargine (Lantus Solostar) 20 unit SUBQ BID [facility] Last Admin: 02/02/18 08:24 Dose: 20 unit Lisinopril (Zestril) 5 mg PO DAILY [facility] Losartan Potassium (Cozaar) 50 mg PO BID [facility] Last Admin: 02/02/18 08:21 Dose: 50 mg Mineral Oil (Cavilon) 1 applic TOP PRN PRN PRN Reason: Skin Care Last Admin: 02/01/18 02:22 Dose: 1 applic Ondansetron HCl (Zofran Inj) 4 mg IVP Q6HR PRN PRN Reason: Nausea / Vomiting Last Admin: 01/31/18 17:58 Dose: 4 mg Polyethylene Glycol (Miralax) 17 gm PO DAILY [facility] Last Admin: 02/02/18 08:22 Dose: Not Given Sodium Chloride (Normal Saline Flush 0.9%) 10 ml IVP PRN PRN PRN Reason: NEEDED PER PROVIDER ORDERS Last Admin: 01/31/18 17:59 Dose: 10 ml Sodium Chloride (Normal Saline Flush 0.9%) 10 ml IVP 0100,0900,1700 [facility] Last Admin: 02/02/18 12:09 Dose: 10 ml Zolpidem Tartrate (Ambien) 5 mg PO QPM PRN PRN Reason: Insomnia Losartan Potassium [Cozaar] 50 mg PO BID 03/31/13 Simvastatin [Zocor] 20 mg PO QPM 03/31/13 Insulin Aspart (Vial) [NovoLOG] 10 - 13 units SUBQ TIDWM 12/30/14 Insulin Glargine,Hum.rec.anlog [Lantus] 25 units SUBQ BID 12/30/14 Cholecalciferol (Vitamin D3) [Vitamin D3] 2,000 units PO DAILY 08/02/16 raNITIdine [Zantac] 150 mg PO BID 10/31/16 Carvedilol [Coreg] 12.5 mg PO BID 01/31/18 Pantoprazole [Protonix] 40 mg PO QDAC 01/31/18 Objective - Vital Signs/Intake & Output Reviewed Vital Signs: Yes Vital Signs: Vital Signs x48h Temp Pulse Pulse Resp BP Pulse Ox 02/02/18 10:15 73 16 02/02/18 07:17 36.9 C 72 16 165/56 H 93 Intake & Output: Intake & Output 01/30/18 01/31/18 02/01/18 02/02/18 23:59 23:59 23:59 23:59 Intake Total 3907.000 2760.417 1273.583 Balance 3907.000 2760.417 1273.583 - Objective General Appearance: positive: No acute distress, Alert, Moderate distress, Severe distress Eyes Bilateral: positive: Normal inspection, PERRL, No lid inflammation, Conjunctivae nml ENT: positive: ENT inspection nml, Pharynx nml, No signs of dehydration. negative: Purulent nasal drainage, Pharyngeal erythema, Oral lesions Neck: positive: Nml inspection, Thyroid nml, No JVD, Trachea midline. negative : Thyromegaly, Lymphadenopathy (R), Lymphadenopathy (L), Stiff neck, Carotid bruit, Swelling/bruising, Tracheal deviation Respiratory: positive: Chest non-tender, No respiratory distress, Breath sounds nml. negative: Wheezes, Rales, Rhonchi Cardiovascular: positive: Regular rate & rhythm, No murmur, No gallop. negative : Irregularly irregular, Extrasystoles, Tachycardia, Bradycardia, Systolic murmur, Diastolic murmur Peripheral Pulses: 2+ Radial (R), 2+ Radial (L), 2+ Dorsalis pedis (R), 2+ Dorsalis pedis (L) Abdomen: positive: Non-tender, No organomegaly, Nml bowel sounds, No distention. negative: Tenderness, Guarding, Rebound Back: positive: Nml inspection. negative: CVA tenderness (R), CVA tenderness (L ) Skin: positive: Color nml, No rash, Warm, Dry. negative: Cyanosis, Diaphoresis , Pallor Extremities: positive: Non-tender, Full ROM, Nml appearance. negative: Calf tenderness, Joint swelling, Naomi's sign/cords Neurologic/Psychiatric: positive: Sensation nml. negative: Weakness, Sensory loss, Facial droop, Slurred/abnml speech, Depressed mood/affect - Lab Results Fish Bones: 02/02/18 04:32 02/02/18 04:32 Other Labs: Lab Results x24hrs 02/02/18 02/02/18 02/02/18 Range/Units 07:41 06:57 05:41 WBC (4.8-10.8) x10^3/uL RBC (4.70-6.10) 10^6/uL Hgb (14.0-18.0) g/dL Hct (42.0-52.0) % MCV (80.0-94.0) fL MCH (27.0-31.0) pg MCHC (32.0-36.0) g/dL RDW (12.0-15.0) % Plt Count (130-450) 10^3/uL MPV (7.4-11.4) fL Neut # (1.5-6.6) 10^3/uL Lymph # (1.5-3.5) 10^3/uL [place] # (0.0-1.0) 10^3/uL Eos # (0.0-0.7) 10^3/uL Baso # (0.0-0.1) 10^3/uL Absolute Nucleated RBC x10^3/uL Nucleated RBC % /100WBC Sodium (135-145) mmol/L Potassium (3.5-5.0) mmol/L Chloride (101-111) mmol/L Carbon Dioxide (21-32) mmol/L Anion Gap (6-13) BUN (6-20) mg/dL Creatinine (0.6-1.2) mg/dL Estimated GFR (MDRD) (>89) Glucose (70-100) mg/dL POC Whole Bld Glucose 102 H 92 79 (70 - 100) mg/dL Calcium (8.5-10.3) mg/dL Total Bilirubin (0.2-1.0) mg/dL AST (10-42) IU/L ALT (10-60) IU/L Alkaline Phosphatase (42-121) IU/L Total Protein (6.7-8.2) g/dL Albumin (3.2-5.5) g/dL Globulin (2.1-4.2) g/dL Albumin/Globulin Ratio (1.0-2.2) 02/02/18 02/02/18 02/02/18 Range/Units 05:18 04:32 04:32 WBC 10.3 (4.8-10.8) x10^3/uL RBC 3.30 L (4.70-6.10) 10^6/uL Hgb 10.1 L (14.0-18.0) g/dL Hct 31.3 L (42.0-52.0) % MCV 94.7 H (80.0-94.0) fL MCH 30.7 (27.0-31.0) pg MCHC 32.4 (32.0-36.0) g/dL RDW 14.1 (12.0-15.0) % Plt Count 124 L (130-450) 10^3/uL MPV 11.3 (7.4-11.4) fL Neut # 7.5 H (1.5-6.6) 10^3/uL Lymph # 1.8 (1.5-3.5) 10^3/uL [place] # 0.9 (0.0-1.0) 10^3/uL Eos # 0.1 (0.0-0.7) 10^3/uL Baso # 0.0 (0.0-0.1) 10^3/uL Absolute Nucleated RBC 0.00 x10^3/uL Nucleated RBC % 0.0 /100WBC Sodium 138 (135-145) mmol/L Potassium 3.5 (3.5-5.0) mmol/L Chloride 107 (101-111) mmol/L Carbon Dioxide 26 (21-32) mmol/L Anion Gap 5.0 L (6-13) BUN 25 H (6-20) mg/dL Creatinine 1.0 (0.6-1.2) mg/dL Estimated GFR (MDRD) 71 L (>89) Glucose 43 L* (70-100) mg/dL POC Whole Bld Glucose 51 L* (70 - 100) mg/dL Calcium 7.6 L (8.5-10.3) mg/dL Total Bilirubin 0.7 (0.2-1.0) mg/dL AST 74 H (10-42) IU/L ALT 35 (10-60) IU/L Alkaline Phosphatase 70 (42-121) IU/L Total Protein 5.5 L (6.7-8.2) g/dL Albumin 2.8 L (3.2-5.5) g/dL Globulin 2.7 (2.1-4.2) g/dL Albumin/Globulin Ratio 1.0 (1.0-2.2) 02/01/18 02/01/18 02/01/18 Range/Units 20:37 16:41 11:23 WBC (4.8-10.8) x10^3/uL RBC (4.70-6.10) 10^6/uL Hgb (14.0-18.0) g/dL Hct (42.0-52.0) % MCV (80.0-94.0) fL MCH (27.0-31.0) pg MCHC (32.0-36.0) g/dL RDW (12.0-15.0) % Plt Count (130-450) 10^3/uL MPV (7.4-11.4) fL Neut # (1.5-6.6) 10^3/uL Lymph # (1.5-3.5) 10^3/uL [place] # (0.0-1.0) 10^3/uL Eos # (0.0-0.7) 10^3/uL Baso # (0.0-0.1) 10^3/uL Absolute Nucleated RBC x10^3/uL Nucleated RBC % /100WBC Sodium (135-145) mmol/L Potassium (3.5-5.0) mmol/L Chloride (101-111) mmol/L Carbon Dioxide (21-32) mmol/L Anion Gap (6-13) BUN (6-20) mg/dL Creatinine (0.6-1.2) mg/dL Estimated GFR (MDRD) (>89) Glucose (70-100) mg/dL POC Whole Bld Glucose 129 H 257 H 189 H (70 - 100) mg/dL Calcium (8.5-10.3) mg/dL Total Bilirubin (0.2-1.0) mg/dL AST (10-42) IU/L ALT (10-60) IU/L Alkaline Phosphatase (42-121) IU/L Total Protein (6.7-8.2) g/dL Albumin (3.2-5.5) g/dL Globulin (2.1-4.2) g/dL Albumin/Globulin Ratio (1.0-2.2) 02/01/18 01/31/18 01/31/18 Range/Units 07:31 20:20 16:30 WBC (4.8-10.8) x10^3/uL RBC (4.70-6.10) 10^6/uL Hgb (14.0-18.0) g/dL Hct (42.0-52.0) % MCV (80.0-94.0) fL MCH (27.0-31.0) pg MCHC (32.0-36.0) g/dL RDW (12.0-15.0) % Plt Count (130-450) 10^3/uL MPV (7.4-11.4) fL Neut # (1.5-6.6) 10^3/uL Lymph # (1.5-3.5) 10^3/uL [place] # (0.0-1.0) 10^3/uL Eos # (0.0-0.7) 10^3/uL Baso # (0.0-0.1) 10^3/uL Absolute Nucleated RBC x10^3/uL Nucleated RBC % /100WBC Sodium (135-145) mmol/L Potassium (3.5-5.0) mmol/L Chloride (101-111) mmol/L Carbon Dioxide (21-32) mmol/L Anion Gap (6-13) BUN (6-20) mg/dL Creatinine (0.6-1.2) mg/dL Estimated GFR (MDRD) (>89) Glucose (70-100) mg/dL POC Whole Bld Glucose 247 H 307 H 364 H (70 - 100) mg/dL Calcium (8.5-10.3) mg/dL Total Bilirubin (0.2-1.0) mg/dL AST (10-42) IU/L ALT (10-60) IU/L Alkaline Phosphatase (42-121) IU/L Total Protein (6.7-8.2) g/dL Albumin (3.2-5.5) g/dL Globulin (2.1-4.2) g/dL Albumin/Globulin Ratio (1.0-2.2) Assessment/Plan - Problem List (1) CAP (community acquired pneumonia) Impression: WBC became normal, pt feet better, no fever, or chill. Cough is better controlled continue antibiotics blood culture negative in preliminary 99% Sats on 2 liter of O2, pt feel better than yesterday. Pt had 38 degree low degree fever on last night, Pt did not have fever today blood culture, follow up continue antibiotic follow up sputum culture continue INH, O2 supplement as needed elevated WBC, CXR indicate pneumonia, cough and respiratory congestion but without fever, chill. start Azithyromycin Rocephin follow up sputum culture Supplement O2 NC as needed (2) Acute kidney injury Conclusion/Plan: continue improved, as pt's baseling continue monitor great improved. Creatinine 1.1, GFR 64 today reduce IVF to 50 cc/h, precaution of fluid overload continue hydration believe it is prerenal secondary to the dehydration ER start to have IVF recheck daily lab monitor (3) Dehydration Conclusion/Plan: hold IVF, hydration well, precaution of fluid overloaded continue hydration, at 50 cc/h start IVF, monitor on lab (4) Diabetes mellitus type 1 Conclusion/Plan: last night pt has one episode of hypoglycemia at 41 glucose reduce insulin Lantus, and Aspart continue ASHC, slide scale A1C 6.4 indicate having good glucose control for DM1 continue slide scale to moderate continue hypoglycemia protocol resume home Lantus, add slide scale check A1C hypoglycemia (5) HTN (hypertension) Conclusion/Plan: stable, resume home meds (6) Generalized weakness Conclusion/Plan: continue PT/OT will consult with PT/OT Qualifiers: Laterality: unspecified laterality Qualified Code(s): J18.9 - Pneumonia, unspecified organism
[2018-02-02] MEDS: LISINOPRIL 5 MG TABLET PO SCH (14:31)
[2018-02-02] MEDS: ATORVASTATIN 10 MG TABLET PO SCH (20:47)
[2018-02-03] MEDS: SODIUM CHLORIDE FLUSH 0.9% 10 ML SYRINGE IVP SCH ×3 (01:01→17:08)
[2018-02-03] MEDS: ONDANSETRON 4 MG/2 ML VIAL IVP PRN (04:58)
[2018-02-03] MEDS: SODIUM CHLORIDE FLUSH 0.9% 10 ML SYRINGE IVP PRN (04:58)
[2018-02-03 05:05] LABS: BASOPHILS % (AUTO) 0.4 %; EOSINOPHILS # (AUTO) 0.2 10^3/uL (0.0-0.7); HGB - HEMOGLOBIN 10.1 g/dL (14.0-18.0); LYMPHOCYTES # (AUTO) 1.6 10^3/uL (1.5-3.5); LYMPHOCYTES % (AUTO) 18.7 %; MEAN CORPUSCULAR HEMOGLOBIN 31.1 pg (27.0-31.0); MEAN CORPUSCULAR HGB CONC 33.2 g/dL (32.0-36.0); MEAN CORPUSCULAR VOLUME 93.7 fL (80.0-94.0); MEAN PLATELET VOLUME 10.4 fL (7.4-11.4); MONOCYTES # (AUTO) 0.7 10^3/uL (0.0-1.0); MONOCYTES % (AUTO) 8.6 %; NEUTROPHILS # (AUTO) 5.8 10^3/uL (1.5-6.6); NEUTROPHILS % (AUTO) 69.3 %; PLT - PLATELET COUNT 125 10^3/uL (130-450); RED BLOOD COUNT 3.23 10^6/uL (4.70-6.10); RED CELL DISTRIBUTION WIDTH 13.8 % (12.0-15.0); WHITE BLOOD COUNT 8.3 x10^3/uL (4.8-10.8)
[2018-02-03 05:19] LABS: ALBUMIN 2.8 g/dL (3.2-5.5); ALBUMIN/GLOBULIN RATIO 1.1 (1.0-2.2); BILIRUBIN,TOTAL 0.8 mg/dL (0.2-1.0); CALCIUM 7.9 mg/dL (8.5-10.3); CREATININE 0.8 mg/dL (0.6-1.2); TOTAL PROTEIN 5.4 g/dL (6.7-8.2)
[2018-02-03] MEDS: INSULIN ASPART 300 UNIT/3 ML PEN SUBQ SCH ×4 (07:54→21:05)
[2018-02-03] MEDS: AZITHROMYCIN INJ 500 MG in SODIUM CHLORIDE 0.9% 250 ML IV SCH (08:12)
[2018-02-03] MEDS: LISINOPRIL 5 MG TABLET PO SCH (09:14)
[2018-02-03] MEDS: CARVEDILOL 12.5 MG TABLET PO SCH ×2 (09:14→21:03)
[2018-02-03] MEDS: LOSARTAN 50 MG TABLET PO SCH ×2 (09:14→21:03)
[2018-02-03] MEDS: FAMOTIDINE 20 MG TABLET PO SCH ×2 (09:14→23:01)
[2018-02-03] MEDS: CHOLECALCIFEROL 1,000 UNIT TABLET PO SCH (09:14)
[2018-02-03] MEDS: INSULIN GLARGINE 300 UNIT/3 ML PEN SUBQ SCH ×2 (09:21→21:06)
[2018-02-03] MEDS: POLYETHYLENE GLYCOL 3350 17 GM PACKET PO SCH (09:21)
[2018-02-03] MEDS: ENOXAPARIN 40 MG/0.4 ML SYRINGE SUBQ SCH (09:21)
[2018-02-03] MEDS: cefTRIAXone 1 GM in SODIUM CHLORIDE 0.9% MINIBAG 100 ML IV SCH (09:21)
--- NOTE | 2018-02-03 14:37 | PROVIDER PROGRESS NOTE ---
Assessment/Plan - Problem List (1) Pneumonia, bacterial Assessment/Plan: The patient was noted to have an elevated WBC count upon admission at 14.6, that is normalized today at 8.3. The patient was noted to have a temp max of 38.0 orally (02/01/18), that is now WNLs. The patient has required oxygen that is new on this admission, first at 2.5L per nasal cannula, that is now at 1L nasal cannula. A chest x-ray was completed at the time of admission and indicated a right full lobe pneumonia that may be due to infection, asymmetric edema or hemorrhage. Due to the patient not having hemotysis or requiring increased oxygen supplementation, hemorrhage is not likely. Blood cultures were obtained at the time of admission and have been no growth to date. The patient has been prescribed IV Azithyromycin and Rocephin. A sputum culture has not been obtained. A walking oxygen test has been ordered in anticipation for discharge. Plan: Continue IV antibiotic treatment and wean oxygen. (2) Acute kidney injury Assessment/Plan: The patient was noted to have an increased serum creatinine level at the time of admission at 1.4, that is now normalized at 0.8. Also, a decreased GFR, which was 48, and now normal at 92. The patient has no known history of kidney disease. These abnormalities were likely due to acute illness and some dehydration. There have been no volumes of urine out put as per chart review, but all vital signs have been WNLs. Plan: Continue to monitor urine output, and lab results. (3) Dehydration Assessment/Plan: As per kidney injury noted upon admission, these labs are now normal and the patient is noted to be at baseline fluid status. There is no evidence of dry mucous membranes upon exam and the patient has been urinating and having good PO intake. Plan: Continue to monitor labs, and review chart for abnormal findings. (4) Diabetes mellitus type 1 Assessment/Plan: The patient is a known diabetic and has a current hemoglobin A1C value of 6.4%. The average blood glucose is noted to be 137 and the patient remains on his home doses of insulin and a carb controlled diet. Plan: Continue to monitor blood sugars, give usual insulin, and oral intake. (5) HTN (hypertension) Qualifiers: Hypertension type: essential hypertension Qualified Code(s): I10 - Essential (primary) hypertension Assessment/Plan: The patient takes Losartan and Coreg at home and has been some what controlled while in the hospital with the last charted blood pressure 169/54. Plan: Continue home meds and watch vital signs. - Current Meds Current Meds: Current Medications Generic Name Dose Route Start Last Admin Trade Name Freq PRN Reason Stop Dose Admin Acetaminophen 650 mg 01/31/18 08:10 01/31/18 22:16 Tylenol PO 650 mg Q4HR PRN Administration Pain 1 to 4 Albuterol/Ipratropium 3 ml 01/31/18 09:15 01/31/18 16:08 Duoneb INH 3 ml Q4HR PRN Administration Wheezing Atorvastatin Calcium 10 mg 01/31/18 21:00 02/02/18 20:47 Lipitor PO 10 mg QPM YAA Administration Carvedilol 12.5 mg 01/31/18 21:00 02/03/18 09:14 Coreg PO 12.5 mg BID YAA Administration Cholecalciferol 2,000 unit 02/01/18 09:00 02/03/18 09:14 Vitamin D3 PO 2,000 unit DAILY YAA Administration Enoxaparin Sodium 40 mg 02/01/18 09:00 02/03/18 09:21 Lovenox SUBQ 40 mg DAILY YAA Administration Famotidine 20 mg 02/01/18 09:00 02/03/18 09:14 Pepcid PO 20 mg DAILY YAA Administration Azithromycin 500 mg/ Sodium 250 mls @ 250 mls/hr 02/01/18 09:00 02/03/18 09: 12 Chloride IV Infused DAILY YAA Infusion Ceftriaxone Sodium 1 gm/ 100 mls @ 200 mls/hr 02/01/18 09:00 02/03/18 09:52 Sodium Chloride IV Infused DAILY YAA Infusion Insulin Aspart 2 - 10 unit 02/02/18 08:00 02/03/18 11:57 Novolog SUBQ 2 unit 0800,1200,1700,2100 YAA Administration Protocol Insulin Glargine 20 unit 02/02/18 07:23 02/03/18 09:21 Lantus Solostar SUBQ 20 unit BID YAA Administration Lisinopril 5 mg 02/02/18 14:00 02/03/18 09:14 Zestril PO 5 mg DAILY YAA Administration Losartan Potassium 50 mg 01/31/18 21:00 02/03/18 09:14 Cozaar PO 50 mg BID YAA Administration Mineral Oil 1 applic 02/01/18 01:19 02/01/18 02:22 Cavilon TOP 1 applic PRN PRN Administration Skin Care Ondansetron HCl 4 mg 01/31/18 08:10 02/03/18 04:58 Zofran Inj IVP 4 mg Q6HR PRN Administration Nausea / Vomiting Polyethylene Glycol 17 gm 02/01/18 09:00 02/03/18 09:21 Miralax PO Not Given DAILY YAA Sodium Chloride 10 ml 01/31/18 08:10 02/03/18 04:58 Normal Saline Flush 0.9% IVP 10 ml PRN PRN Administration NEEDED PER PROVIDER ORDERS Sodium Chloride 10 ml 01/31/18 17:00 02/03/18 08:12 Normal Saline Flush 0.9% IVP 10 ml 0100,0900,1700 YAA Administration - Lab Result Lab results reviewed: Yes Fish Bone Diagrams: 02/03/18 04:52 02/03/18 04:52 - EKG Results EKG Interpreted Independently: Yes - Diagnostic Imaging Results Diagnostic Imaging Results: Final report reviewed Diagnostic Imaging Results Comments: EXAM: CHEST RADIOGRAPHY EXAM DATE: 01/31/2018 07:05 AM. CLINICAL HISTORY: Chest pain left sided. COMPARISON: 10/31/2016. TECHNIQUE: 2 views. FINDINGS: Lungs/Pleura: Diffuse patchy airspace opacities involves the left hemithorax and right paratracheal region. No pleural effusion. No pneumothorax. Mediastinum: Heart and mediastinal contours are unremarkable. Other: None. IMPRESSION: Diffuse airspace opacification of the left hemithorax and right paratracheal region, query infection, asymmetric edema, hemorrhage. - Additional Planning Condition/Complexity: Stable My Orders: My Active Orders 02/03/18 10:49 Oxygen Desat. Study w/Exercise [RC] .ONCE 02/03/18 11:00 Home Health Referral [CONS] Routine Plan Discussed with:: Patient Time Spent: 15-30 minutes Subjective - Subjective Patient Reports: No Complaints Nursing Reports: No Complaints Objective Vital Signs: Vital Signs - 24 hr 02/02/18 02/02/18 02/03/18 15:35 21:53 01:05 Temperature 36.5 C 37.0 C Heart Rate 73 Heart Rate [ 70 70 Brachial] Respiratory 16 18 18 Rate Blood Pressure 188/66 H 161/56 H [Left Brachial artery] Blood Pressure [Right Brachial artery] O2 Saturation 95 92 02/03/18 02/03/18 02/03/18 08:00 10:00 11:40 Temperature 36.8 C Heart Rate 69 77 Heart Rate [ 74 Brachial] Respiratory 18 20 Rate Blood Pressure [Left Brachial artery] Blood Pressure 169/54 H [Right Brachial artery] O2 Saturation 93 Oxygen O2 Source [Without Activity] Nasal cannula O2 Source [With Activity] Nasal cannula O2 Source Nasal cannula I&O (Last 24 Hrs): Intake and Output Totals x24h 02/01/18 02/02/18 02/03/18 23:59 23:59 23:59 Intake Total 2760.417 2429.583 1320 Balance 2760.417 2429.583 1320 General: Alert, Cooperative, No acute distress HEENT: Atraumatic Neck: Supple, No JVD Lymphatic: no adenopathy Neuro: Alert, Disoriented (profound STM loss), CN 2-12 Grossly Intact Cardiovascular: Regular rate, Normal S1, Normal S2 Respiratory: Chest non-tender, No respiratory distress, Rhonchi Abdomen: Normal bowel sounds, Soft, No tenderness, No masses Genitourinary: Normal Inspection Extremities: No clubbing, No tenderness/swelling Skin: No rashes, No breakdown, No significant lesion - Results Results: Laboratory Results WBC 8.3 x10^3/uL (4.8-10.8) 02/03/18 04:52 RBC 3.23 10^6/uL (4.70-6.10) L 02/03/18 04:52 Hgb 10.1 g/dL (14.0-18.0) L 02/03/18 04:52 Hct 30.2 % (42.0-52.0) L 02/03/18 04:52 MCV 93.7 fL (80.0-94.0) 02/03/18 04:52 MCH 31.1 pg (27.0-31.0) H 02/03/18 04:52 MCHC 33.2 g/dL (32.0-36.0) 02/03/18 04:52 RDW 13.8 % (12.0-15.0) 02/03/18 04:52 Plt Count 125 10^3/uL (130-450) L 02/03/18 04:52 MPV 10.4 fL (7.4-11.4) 02/03/18 04:52 Neut # 5.8 10^3/uL (1.5-6.6) 02/03/18 04:52 Lymph # 1.6 10^3/uL (1.5-3.5) 02/03/18 04:52 Sherman # 0.7 10^3/uL (0.0-1.0) 02/03/18 04:52 Eos # 0.2 10^3/uL (0.0-0.7) 02/03/18 04:52 Baso # 0.0 10^3/uL (0.0-0.1) 02/03/18 04:52 Absolute Nucleated RBC 0.00 x10^3/uL 02/03/18 04:52 Nucleated RBC % 0.0 /100WBC 02/03/18 04:52 Sodium 137 mmol/L (135-145) 02/03/18 04:52 Potassium 3.6 mmol/L (3.5-5.0) 02/03/18 04:52 Chloride 105 mmol/L (101-111) 02/03/18 04:52 Carbon Dioxide 28 mmol/L (21-32) 02/03/18 04:52 Anion Gap 4.0 (6-13) L 02/03/18 04:52 BUN 21 mg/dL (6-20) H 02/03/18 04:52 Creatinine 0.8 mg/dL (0.6-1.2) 02/03/18 04:52 Estimated GFR (MDRD) 92 (>89) 02/03/18 04:52 Glucose 103 mg/dL (70-100) H 02/03/18 04:52 POC Whole Bld Glucose 108 mg/dL (70 - 100) H 02/03/18 02:12 Glycated Hemoglobin 6.4 % (4.6-6.2) H 01/31/18 09:36 Estim Average Glucose 137 (70-100) H 01/31/18 09:36 Lactic Acid 1.0 mmol/L (0.5-2.2) 02/01/18 08:05 Calcium 7.9 mg/dL (8.5-10.3) L 02/03/18 04:52 Magnesium 1.8 mg/dL (1.7-2.8) 02/01/18 05:08 Total Bilirubin 0.8 mg/dL (0.2-1.0) 02/03/18 04:52 AST 50 IU/L (10-42) H 02/03/18 04:52 ALT 35 IU/L (10-60) 02/03/18 04:52 Alkaline Phosphatase 73 IU/L (42-121) 02/03/18 04:52 Total Creatine Kinase 305 IU/L (22-269) H 01/31/18 05:43 Troponin I < 0.04 ng/mL (<0.49) 01/31/18 05:43 Total Protein 5.4 g/dL (6.7-8.2) L 02/03/18 04:52 Albumin 2.8 g/dL (3.2-5.5) L 02/03/18 04:52 Globulin 2.6 g/dL (2.1-4.2) 02/03/18 04:52 Albumin/Globulin Ratio 1.1 (1.0-2.2) 02/03/18 04:52 Lipase 10 U/L (22-51) L 01/31/18 05:43 Influenza A (Rapid) Negative (Negative) 01/31/18 11:00 Influenza B (Rapid) Negative (Negative) 01/31/18 11:00 - Procedures Procedures: Procedures CIRCUMCISION (04/05/13) CYSTOSCOPY NEC (04/05/13) DRAINAGE OF CHEST SKIN, EXTERNAL APPROACH (08/01/16)
[2018-02-03] MEDS ORDERED: PANTOPRAZOLE 40 MG TABLET PO SCH (19:00)
[2018-02-03] MEDS: ATORVASTATIN 10 MG TABLET PO SCH (21:03)
[2018-02-03] MEDS: PANTOPRAZOLE 40 MG TABLET PO SCH (23:01)
[2018-02-04 05:24] LABS: BASOPHILS % (AUTO) 0.3 %; EOSINOPHILS # (AUTO) 0.3 10^3/uL (0.0-0.7); HGB - HEMOGLOBIN 10.9 g/dL (14.0-18.0); LYMPHOCYTES # (AUTO) 1.3 10^3/uL (1.5-3.5); LYMPHOCYTES % (AUTO) 19.2 %; MEAN CORPUSCULAR HGB CONC 32.9 g/dL (32.0-36.0); MEAN PLATELET VOLUME 10.6 fL (7.4-11.4); MONOCYTES # (AUTO) 0.7 10^3/uL (0.0-1.0); NEUTROPHILS # (AUTO) 4.5 10^3/uL (1.5-6.6); NEUTROPHILS % (AUTO) 66.5 %; PLT - PLATELET COUNT 137 10^3/uL (130-450); RED BLOOD COUNT 3.53 10^6/uL (4.70-6.10); RED CELL DISTRIBUTION WIDTH 13.8 % (12.0-15.0); WHITE BLOOD COUNT 6.8 x10^3/uL (4.8-10.8)
[2018-02-04 05:39] LABS: ALBUMIN/GLOBULIN RATIO 0.9 (1.0-2.2); BILIRUBIN,TOTAL 0.9 mg/dL (0.2-1.0); CREATININE 0.9 mg/dL (0.6-1.2); TOTAL PROTEIN 6.2 g/dL (6.7-8.2)
[2018-02-04] MEDS: SODIUM CHLORIDE FLUSH 0.9% 10 ML SYRINGE IVP SCH ×2 (06:58→08:07)
[2018-02-04] MEDS: ONDANSETRON 4 MG/2 ML VIAL IVP PRN (06:58)
[2018-02-04] MEDS: SODIUM CHLORIDE FLUSH 0.9% 10 ML SYRINGE IVP PRN (06:58)
[2018-02-04] MEDS: PANTOPRAZOLE 40 MG TABLET PO SCH (07:30)
--- NOTE | 2018-02-04 07:35 | Discharge Plan ---
"Discharge Plan for SNF / [facility] - DC Plan and Transition Orders Disposition: 03 SNF DC/Xfer Condition: Good SNF Transition Orders: Admit to: Care Age under the care of Dr. Harmon: Discharge Diagnosis: pneumonia, HAVEN, dehydration, DM type 1, hypertension, history of right BKA, mild dementia, & STM loss. Medicare Certification: I certify that [facility] is medically necessary on a continuing basis for any of the conditions for which she/he is receiving care during hospitalization. Notify PCP of admission and forward orders to primary provider for signature. Weight on admission and weekly. Call provider if weight increases by 10 pounds or if patient develops dyspnea, chest pain/tightness or edema. House Bowel Program: yes If no BM after 2 days, nurse may give M.O.M. 30ml PO PRN and /or ducolax Supp 1 OH and /or KRISTAN 250mg P.O., and/or senna 1-2 tabs PO. On day 3 nurse may give repeat above order until residents constipation is resolved. Immunizations: Annual Influenza Vaccine: yes. (between Jun 13 and January 10 .) Unless allergy or already given Two-Step PPD: yes per [facility] [phone] or appropriate documentation of approved exceptions Treatments & Other Orders: Continue oral antibiotics for treatment of pneumonia. Oxygen Orders: A walking saturation test was completed by our respiratory therapist which shows that you do not need oxygen based on your oxygen saturation levels. Ok to apply 1-2 liters per nasal cannula to keep oxygen saturation greater than 90%, PRN. Lab Tests or X-Rays Orders: As per facility protocol. Orthopedic Orders: N/A, a wound care consult was made for HONORIO as the patient has snf skin break down. Nystatin topical powder is now prescribed to be applied BID. Medications: PLEASE REFER TO THE DISCHARGE MEDICATION LIST. Insulin Orders? yes Diagnosis: Diabetes mellitus type 1:Initiate hypo and hyperglycemia protocols for BG <70 and BG >375. May check BG prn for signs/symptoms of dysglycemia. Frequency of BG checks: AC/Meal/HS Basal Insulin: Lantus (Glargine) inject subq as follows: 25 units BID scheduled. Correction Insulin: - Aspart 10-13 units; inject subq TID with meals. Allergies and Adverse Reactions: Allergies Allergy/AdvReac Type Severity Reaction Status Date / Time cortisone [Cortisone] AdvReac Intermediate Respiratory Verified 01/31/18 06:01 - Medications New Prescriptions: Amoxicillin 1,000 mg PO TID 10 Days #60 capsule Azithromycin 500 mg PO DAILY 10 Days #10 tablet Nystatin 1 each MC BID #5 powder.ea. Saccharomyces Boulardii [Florastor] 250 mg PO BID 20 Days #40 capsule - Diet Type: Geriatric Texture: Regular May have monthly special meal: Yes - Therapies | Activity Therapy: Evaluation | Treat if indicated: Speech, PT, OT Rehabilitation Potential: Maximize functional status, Return to independent living, Maintain present ADL Functional Activity: Activity as Tolerated Weight Bearing: Full Weight Assistance Devices: Walker"
--- NOTE | 2018-02-04 07:38 | DISCHARGE SUMMARY ---
Discharge Summary Admit Date: 01/31/18 Discharge Date: 02/04/18 Discharging Provider: JASVIR Al Primary Care Provider: Dr. Pete Harmon Code Status: Attempt Resuscitation Condition at Discharge: Good Discharge Disposition: 03 SNF DC/Xfer - DIAGNOSES Admission Diagnoses: Unspecified bacterial pneumonia (J15.9) Acute kidney failure, unspecified (N17.9) Dehydration (E86.0) Type 1 diabetes mellitus without complications (E10.9) Essential (primary) hypertension (I10) Discharge Diagnoses with Status of Each Condition: Community acquired bacterial pneumonia (J15.9)- new on this admit, improved, PO treatment to continue. HAVEN (acute kidney injury) (N17.9)- resolved. Dehydration (E86.0)- resolved. Type 1 diabetes (E10.9) HTN (hypertension) (I10)- chronic, stable. Hx of right BKA (Z89.511)- chronic, stable. - HPI History of Present Illness: Mr. 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 Pt report he had cough, feeling of sickness for over a week. Last night, he got up to the bathroom and felt very weak, lightheaded, nausea, and vomiting twice, then he slumped down the floor, and could not get back up the living room due to the weakness. The caregiver found him in the floor. The caregiver think pt had been on floor for a few hours. Pt report he did not have injury from this episode. He report he had lifesaving call line but he forget to push the bottle. Pt denies fever, chill, chest pain, diarrhea, abdominal pain. In the lab test on ER, pt has significant elevated BUN and Creatinine, and elevated TCK, and elevated WBC. In the CXR, there is diffuse airspace opacification of the left hemithorax and right paratracheal region, query infection, asymmetric edema, hemorrhage. Pt is admitted for evaluation and treatment of pneumonia, acute renal injury, weakness. - HOSPITAL COURSE Hospital Course: The following diagnoses were prevalent during this hospital stay: (1) Pneumonia, bacterial The patient was noted to have an elevated WBC count upon admission at 14.6, that normalized at 8.3. The patient was noted to have a temp max of 38.0 orally (02/01/18), that is now WNLs. The patient has required oxygen that is new on this admission, first at 2.5L per nasal cannula, that was weaned to room air. A chest x-ray was completed at the time of admission and indicated a right full lobe pneumonia that may be due to infection, asymmetric edema or hemorrhage. Due to the patient not having hemotysis or requiring increased oxygen supplementation, hemorrhage is not likely. Blood cultures were obtained at the time of admission and have been no growth to date. The patient was given IV Azithyromycin and Rocephin that was changed to amoxicillin and azithromycin PO for discharge. A sputum culture was not obtained. A walking oxygen test has been ordered in anticipation for discharge and it was determined that there is no need for this. (2) Acute kidney injury The patient was noted to have an increased serum creatinine level at the time of admission at 1.4, that normalized at 0.8. Also, a decreased GFR, which was 48, and now normal at 92. The patient has no known history of kidney disease. These abnormalities were likely due to acute illness and some dehydration. There have been no volumes of urine out put as per chart review, but all vital signs have been WNLs. This diagnosis is considered resolved at the time of discharge. (3) Dehydration As per kidney injury noted upon admission, these labs are now normal and the patient is noted to be at baseline fluid status. There is no evidence of dry mucous membranes upon exam and the patient has been urinating and having good PO intake. This diagnosis is considered resolved at the time of discharge. (4) Diabetes mellitus type 1 The patient is a known diabetic and has a current hemoglobin A1C value of 6.4%. The average blood glucose is noted to be 137 and the patient remains on his home doses of insulin and a carb controlled diet. The patient's blood sugars were monitored and he was given Lantus 25 units SQ daily, Aspart scheduled with meals 10 units SQ and encouraged to maintain good oral intake. (5) HTN (hypertension) The patient takes Losartan and Coreg at home and has been some what controlled while in the hospital with the last charted blood pressure 169/54. These medications were continued upon discharge. Disposition: The patient was transported via van to [facility] under the care of Dr. Harmon. He was improved from admission and considered stable. Antibiotics , probiotics were continued. He passed his oxygen walking test and did not require oxygen. - ALLERGIES Allergies/Adverse Reactions: Allergies Allergy/AdvReac Type Severity Reaction Status Date / Time cortisone [Cortisone] AdvReac Intermediate Respiratory Verified 01/31/18 06:01 - MEDICATIONS Home Medications: Ambulatory Orders Medication Instructions Recorded Confirmed Losartan Potassium [Cozaar] 50 mg PO BID 03/31/13 01/31/18 Simvastatin [Zocor] 20 mg PO QPM 03/31/13 01/31/18 Insulin Aspart (Vial) [NovoLOG 10 - 13 units SUBQ TIDWM 12/30/14 01/31/18 (VIAL FOR ED USE)] Insulin Glargine,Hum.rec.anlog 25 units SUBQ BID 12/30/14 01/31/18 [Lantus] Cholecalciferol (Vitamin D3) 2,000 units PO DAILY 08/02/16 01/31/18 [Vitamin D3] raNITIdine [Zantac] 150 mg PO BID 10/31/16 01/31/18 Carvedilol [Coreg] 12.5 mg PO BID 01/31/18 01/31/18 Pantoprazole [Protonix] 40 mg PO QDAC 01/31/18 01/31/18 Amoxicillin 1,000 mg PO TID 10 Days #60 capsule 02/04/18 Azithromycin 500 mg PO DAILY 10 Days #10 tablet 02/04/18 Nystatin 1 each MC BID #5 powder.ea. 02/04/18 Saccharomyces Boulardii [Florastor] 250 mg PO BID 20 Days #40 capsule 02/04/18 - PHYSICAL EXAM AT DISCHARGE General Appearance: positive: No acute distress, Alert Eyes Bilateral: positive: Normal inspection, PERRL ENT: positive: ENT inspection nml, Pharynx nml, No signs of dehydration Neck: positive: Nml inspection, Thyroid nml, No JVD, Trachea midline Respiratory: positive: Chest non-tender, No respiratory distress, Wheezes, Rhonchi Cardiovascular: positive: Regular rate & rhythm, No gallop, Decreased pulse(s) Peripheral Pulses: positive: 1+, 0 (doppler pulse in left LE.) Abdomen: positive: Non-tender, No organomegaly, Nml bowel sounds, Guarding Back: positive: Nml inspection Skin: positive: Color nml, No rash, Warm, Dry Extremities: positive: Non-tender, Pedal edema, Joint swelling Reflexes: Bicep (R): 2+, Bicep (L): 2+ - LABS Result Diagrams: 02/04/18 05:10 02/04/18 05:10 - DIAGNOSTIC IMAGING Diagnostic Imaging Results: Final report reviewed - TIME SPENT Time Spent in Discharge (Minutes): 50
[2018-02-04] MEDS: CHOLECALCIFEROL 1,000 UNIT TABLET PO SCH (08:07)
[2018-02-04] MEDS: FAMOTIDINE 20 MG TABLET PO SCH (08:07)
[2018-02-04] MEDS: LISINOPRIL 5 MG TABLET PO SCH (08:07)
[2018-02-04] MEDS: ENOXAPARIN 40 MG/0.4 ML SYRINGE SUBQ SCH (08:07)
[2018-02-04] MEDS: CARVEDILOL 12.5 MG TABLET PO SCH (08:07)
[2018-02-04] MEDS: LOSARTAN 50 MG TABLET PO SCH (08:07)
[2018-02-04] MEDS: INSULIN GLARGINE 300 UNIT/3 ML PEN SUBQ SCH (08:09)
[2018-02-04] MEDS: INSULIN ASPART 300 UNIT/3 ML PEN SUBQ SCH (08:09)
[2018-02-04] MEDS: AZITHROMYCIN INJ 500 MG in SODIUM CHLORIDE 0.9% 250 ML IV SCH (08:12)
[2018-02-04] MEDS: POLYETHYLENE GLYCOL 3350 17 GM PACKET PO SCH (08:12)
[2018-02-04] MEDS: cefTRIAXone 1 GM in SODIUM CHLORIDE 0.9% MINIBAG 100 ML IV SCH (09:23)
[2018-02-04 09:48] VITALS: BP 112/38
[2018-02-04] MEDS ORDERED: NYSTATIN POWDER 15 GM TOP SCH (11:00)
== END 2018-02-04 10:55 | DRG 194 ==
LOC: EDUNIT# → ED 05:32 → MS2 08:10
PROVIDERS: ADMIT Nurse Practitioner Gerontology; ATTEND Nurse Practitioner
DX: J18.9 Pneumonia, unspecified organism (principal); R09.02 Hypoxemia; R55 Syncope and collapse; W18.39XA Other fall on same level, initial encounter; Y92.098 Other place in other non-institutional residence as the place of occurrence of the external cause; J15.9 Unspecified bacterial pneumonia; N17.9 Acute kidney failure, unspecified; E86.0 Dehydration; E10.42 Type 1 diabetes mellitus with diabetic polyneuropathy; Z89.611 Acquired absence of right leg above knee; E10.649 Type 1 diabetes mellitus with hypoglycemia without coma; I10 Essential (primary) hypertension; Z87.11 Personal history of peptic ulcer disease; Z89.511 Acquired absence of right leg below knee; Z91.81 History of falling; Z79.899 Other long term (current) drug therapy; Z79.4 Long term (current) use of insulin
CPT/HCPCS: 36415; 71046; 80053; 82550; 83036; 83605; 83690; 83735; 84484; 85025; 87040; 87275; 87276; 93005; 94640; 94761; 96361; 96365; 96375; 99285

== ENCOUNTER 2018-02-09 15:43 | Outpatient (CLI) | payer MEDICARE, OTHER | END 2018-02-09 15:44 | disposition critical access hospital (66) | LOC: EMS 15:43 | PROVIDERS: ATTEND Surgery | DX: R46.4 Slowness and poor responsiveness (principal); R73.09 Other abnormal glucose | CPT/HCPCS: A0425; A0427 ==

== ENCOUNTER 2018-02-09 15:50 | Emergency (ER) | payer MEDICARE, OTHER ==
--- NOTE | 2018-02-09 16:24 | ED Physician Documentation ---
History of Present Illness - Stated complaint Stated Complaint: DEC LOC - Chief complaint Chief Complaint: Neuro - History obtained from History obtained from: Patient, EMS - History of Present Illness Timing: Today Pain level max: 0 Pain level now: 0 Improved by: [id number] Worsened by: insulin - Additonal information Additional information: 82 year old insulin dependent diabetic male with a blood sugar of 44 today after taking his lantus. Improved with D50. Blood sugar 150 upon arrival here. Patient recently finished antibiotics for pneumonia. He is currently living at [facility]. Review of Systems Ten Systems: 10 systems reviewed and negative Constitutional: denies: Fever, Chills Nose: reports: Rhinorrhea / runny nose, Congestion Cardiac: denies: Chest pain / pressure Respiratory: reports: Cough GI: denies: Abdominal Pain, Nausea, Vomiting, Diarrhea : denies: Dysuria Skin: denies: Rash Musculoskeletal: denies: Neck pain, Back pain Neurologic: denies: Focal weakness, Numbness, Altered mental status, Headache PD PAST MEDICAL HISTORY - Past Medical History Cardiovascular: Hypertension Respiratory: Other Neuro: Peripheral neuropathy Endocrine/Autoimmune: Type 1 diabetes GI: Ulcers : Benign prostate hypertrophy, None, Incontinence, Nocturia HEENT: Chronic vision loss Psych: None Musculoskeletal: Other Derm: None - Past Surgical History Past Surgical History: Yes General: Cholecystectomy, Other Ortho: Amputation, Other HEENT: Cataracts - Present Medications Home Medications: Ambulatory Orders Medication Instructions Recorded Confirmed Losartan Potassium [Cozaar] 50 mg PO BID 03/31/13 01/31/18 Simvastatin [Zocor] 20 mg PO QPM 03/31/13 01/31/18 Insulin Aspart (Vial) [NovoLOG 10 - 13 units SUBQ TIDWM 12/30/14 01/31/18 (VIAL FOR ED USE)] Insulin Glargine,Hum.rec.anlog 25 units SUBQ BID 12/30/14 01/31/18 [Lantus] Cholecalciferol (Vitamin D3) 2,000 units PO DAILY 08/02/16 01/31/18 [Vitamin D3] raNITIdine [Zantac] 150 mg PO BID 10/31/16 01/31/18 Carvedilol [Coreg] 12.5 mg PO BID 01/31/18 01/31/18 Pantoprazole [Protonix] 40 mg PO QDAC 01/31/18 01/31/18 Amoxicillin 1,000 mg PO TID 10 Days #60 capsule 02/04/18 Azithromycin 500 mg PO DAILY 10 Days #10 tablet 02/04/18 Nystatin 1 each MC BID #5 powder.ea. 02/04/18 Saccharomyces Boulardii [Florastor] 250 mg PO BID 20 Days #40 capsule 02/04/18 Cefpodoxime Proxetil 200 mg PO BID #20 tablet 02/09/18 - Allergies Allergies/Adverse Reactions: Allergies Allergy/AdvReac Type Severity Reaction Status Date / Time cortisone [Cortisone] AdvReac Intermediate Respiratory Verified 01/31/18 06:01 - Social History Does the pt smoke?: No Smoking Status: Former smoker Does the pt drink ETOH?: No Does the pt have substance abuse?: No - Immunizations Immunizations are current?: Yes - POLST Patient has POLST: No POLST Status: Full Code PD ED PE NORMAL - Vitals Vital signs reviewed: Yes - General General: Alert and oriented X 3, No acute distress - HEENT HEENT: Moist mucous membranes, Pharynx benign - Neck Neck: Supple, no meningeal sign - Cardiac Cardiac: RRR - Respiratory Respiratory: Other (Mild rhonchi bilaterally) - Abdomen Abdomen: Soft, Non tender, Non distended - Back Back: No CVA TTP - Derm Derm: Warm and dry - Extremities Extremities: No calf tenderness / cord - Neuro Neuro: Alert and oriented X 3 Results - Vitals Vitals: Vital Signs - 24 hr 02/09/18 02/09/18 02/09/18 15:57 18:20 19:38 Temperature 36.2 C L Heart Rate 58 L 65 67 Respiratory 18 15 16 Rate Blood Pressure 194/74 H 177/76 H 196/83 H O2 Saturation 95 95 96 Oxygen O2 Source [Without Activity] Nasal cannula O2 Source [With Activity] Nasal cannula O2 Source Room air - Labs Labs: Laboratory Tests 02/09/18 02/09/18 02/09/18 16:06 16:48 16:48 WBC 12.5 H RBC 3.41 L Hgb 10.4 L Hct 32.4 L MCV 95.1 H MCH 30.5 MCHC 32.0 RDW 13.7 Plt Count 200 MPV 9.4 Neut # 9.7 H Lymph # 1.4 L [place] # 0.8 Eos # 0.4 Baso # 0.1 Absolute Nucleated RBC 0.00 Nucleated RBC % 0.0 Sodium 133 L Potassium 3.5 Chloride 99 L Carbon Dioxide 27 Anion Gap 7.0 BUN 14 Creatinine 0.9 Estimated GFR (MDRD) 80 L Glucose 122 H POC Whole Bld Glucose 135 H Calcium 7.9 L Total Bilirubin 0.6 AST 37 ALT 39 Alkaline Phosphatase 84 Total Protein 6.0 L Albumin 2.9 L Globulin 3.1 Albumin/Globulin Ratio 0.9 L Lipase 14 L Urine Color Urine Clarity Urine pH Ur Specific [place] Urine Protein Urine Glucose (UA) Urine Ketones Urine Occult Blood Urine Nitrite Urine Bilirubin Urine Urobilinogen Ur Leukocyte Esterase Ur Microscopic Review Urine Culture Comments 02/09/18 02/09/18 17:30 18:16 WBC RBC Hgb Hct MCV MCH MCHC RDW Plt Count MPV Neut # Lymph # [place] # Eos # Baso # Absolute Nucleated RBC Nucleated RBC % Sodium Potassium Chloride Carbon Dioxide Anion Gap BUN Creatinine Estimated GFR (MDRD) Glucose POC Whole Bld Glucose 123 H Calcium Total Bilirubin AST ALT Alkaline Phosphatase Total Protein Albumin Globulin Albumin/Globulin Ratio Lipase Urine Color YELLOW Urine Clarity CLEAR Urine pH 7.0 Ur Specific [place] 1.015 Urine Protein NEGATIVE Urine Glucose (UA) NEGATIVE Urine Ketones NEGATIVE Urine Occult Blood NEGATIVE Urine Nitrite NEGATIVE Urine Bilirubin NEGATIVE Urine Urobilinogen 0.2 (NORMAL) Ur Leukocyte Esterase NEGATIVE Ur Microscopic Review NOT INDICATED Urine Culture Comments NOT INDICATED - Rads (name of study) cxr Radiology: Prelim report reviewed, EMP read contemporaneously, See rad report ( Mild patchy haziness in the right midlung residual scarring versus new infiltrate. Clearing of previous left-sided infiltrate.) PD MEDICAL DECISION MAKING - ED course Complexity details: reviewed old records, reviewed results, re-evaluated patient , considered differential, d/w patient ED course: Patient is an 82-year-old gentleman who presents to the emergency department with hypoglycemia after taking his Lantus. He did not have any recurrent hypoglycemia in the emergency department. Tolerating p.o. without difficulty. On his laboratory testing his white blood cell count was noted to be elevated again and a new infiltrate was found on his chest x-ray. Will treat for recurrent pneumonia. No hypoxia. No respiratory distress. Will allow his PCP to adjust his insulin and have him follow-up closely. Patient will be discharged back to [facility]. This document was made in part using voice recognition software. While efforts are made to proofread this document, sound alike and grammatical errors may occur. Departure - Departure Disposition: 01 Home, Self Care Clinical Impression: Hypoglycemia Pneumonia Qualifiers: Pneumonia type: due to unspecified organism Laterality: right Lung location: middle lobe of lung Qualified Code(s): J18.1 - Lobar pneumonia, unspecified organism Condition: Good Instructions: ED Diabetes Hypoglycemia Insulin React, ED Pneumonia Adult Follow-Up: Michael Bullard MD [Primary Care Provider] - Within 3 Days Prescriptions: Cefpodoxime Proxetil 200 mg PO BID #20 tablet Comments: Take all antibiotics until gone. He should have his Lantus levels decreased. Consult his doctor for new dosing. Discharge Date/Time: 02/09/18 20:10
[2018-02-09 16:54] LABS: BASOPHILS # (AUTO) 0.1 10^3/uL (0.0-0.1); BASOPHILS % (AUTO) 0.7 %; EOSINOPHILS # (AUTO) 0.4 10^3/uL (0.0-0.7); EOSINOPHILS % (AUTO) 3.5 %; HGB - HEMOGLOBIN 10.4 g/dL (14.0-18.0); LYMPHOCYTES # (AUTO) 1.4 10^3/uL (1.5-3.5); LYMPHOCYTES % (AUTO) 11.6 %; MEAN CORPUSCULAR HEMOGLOBIN 30.5 pg (27.0-31.0); MEAN CORPUSCULAR VOLUME 95.1 fL (80.0-94.0); MEAN PLATELET VOLUME 9.4 fL (7.4-11.4); MONOCYTES # (AUTO) 0.8 10^3/uL (0.0-1.0); MONOCYTES % (AUTO) 6.2 %; NEUTROPHILS # (AUTO) 9.7 10^3/uL (1.5-6.6); PLT - PLATELET COUNT 200 10^3/uL (130-450); RED BLOOD COUNT 3.41 10^6/uL (4.70-6.10); RED CELL DISTRIBUTION WIDTH 13.7 % (12.0-15.0); WHITE BLOOD COUNT 12.5 x10^3/uL (4.8-10.8)
[2018-02-09 17:08] LABS: ALBUMIN 2.9 g/dL (3.2-5.5); ALBUMIN/GLOBULIN RATIO 0.9 (1.0-2.2); BILIRUBIN,TOTAL 0.6 mg/dL (0.2-1.0); CALCIUM 7.9 mg/dL (8.5-10.3); CREATININE 0.9 mg/dL (0.6-1.2)
[2018-02-09 17:37] LABS: BILIRUBIN,URINE NEGATIVE (NEGATIVE); GLUCOSE, URINE (UA) NEGATIVE (NEGATIVE); KETONES,URINE (UA) NEGATIVE (NEGATIVE); LEUKOCYTE ESTERASE, URINE NEGATIVE (NEGATIVE); NITRITE,URINE NEGATIVE (NEGATIVE); OCCULT BLOOD,URINE NEGATIVE (NEGATIVE); PROTEIN,URINE NEGATIVE (NEGATIVE); UROBILINOGEN,URINE 0.2 (NORMAL) E.U./dL (NORMAL)
[2018-02-09 17:41] LABS: CLARITY,URINE CLEAR (CLEAR)
--- NOTE | 2018-02-09 18:08 | XRAY Report ---
EXAM: CHEST RADIOGRAPHY EXAM DATE: 02/09/2018 05:34 PM. CLINICAL HISTORY: Leukocytosis. Cough and shortness of breath for 2 days. COMPARISON: 01/31/2018. TECHNIQUE: 1 view. FINDINGS: Lungs/Pleura: Mild patchy opacity in the right midlung. Bibasilar haziness, likely atelectasis. Clear ing of previous left-sided infiltrate. No large effusion or pneumothorax. Mediastinum: Within exam limitations, the cardiomediastinal contour is normal. Other: No bony abnormality identified. IMPRESSION: 1. Mild patchy haziness in the right midlung, residual scarring versus new infiltrate. 2. Clearing of previous left-sided infiltrate. [facility] Referring Provider Line: [phone] SITE ID: [id number]
--- NOTE | 2018-02-09 18:08 | XRAY Preliminary Report ---
Exam: XR CHEST 1 VIEW X-RAY IMPRESSION: 1. Mild patchy haziness in the right midlung, residual scarring versus new infiltrate. 2. Clearing of previous left-sided infiltrate. [facility] SITE ID: [id number]
[2018-02-09] MEDS ORDERED: cefTRIAXone 1 GM VIAL IVP STA (18:28)
[2018-02-09 19:38] VITALS: BP 196/83
== END 2018-02-09 20:10 | disposition home or self-care (01) ==
LOC: EDUNIT# → ED 15:50
DX: I45.81 Long QT syndrome (principal); E10.649 Type 1 diabetes mellitus with hypoglycemia without coma; E10.42 Type 1 diabetes mellitus with diabetic polyneuropathy; J18.1 Lobar pneumonia, unspecified organism; I10 Essential (primary) hypertension; Z87.891 Personal history of nicotine dependence
CPT/HCPCS: 36415; 71045; 80053; 81001; 81003; 83690; 85025; 87086; 96374; 99283; 99284

== ENCOUNTER 2018-02-23 11:07 | Outpatient (CLI) | payer MEDICARE, OTHER | END 2018-02-23 11:08 | disposition EMS.NT | LOC: EMS 11:07 | PROVIDERS: ATTEND Surgery | DX: R46.4 Slowness and poor responsiveness (principal); R73.09 Other abnormal glucose ==

== ENCOUNTER 2018-05-12 07:09 | Outpatient (CLI) | payer MEDICARE, OTHER ==
[2018-05-12 13:26] LABS: ALBUMIN 4.4 g/dL (3.2-5.5); ALBUMIN/GLOBULIN RATIO 1.5 (1.0-2.2); ALKALINE PHOSPHATASE 62 IU/L (42-121); ALT ALANINE AMINOTRANSFERASE 23 IU/L (10-60); AST ASPARTATE AMINOTRANSFERASE 27 IU/L (10-42); BILIRUBIN,TOTAL 1.3 mg/dL (0.2-1.0); BUN - BLOOD UREA NITROGEN 31 mg/dL (6-20); CALCIUM 9.5 mg/dL (8.5-10.3); CARBON DIOXIDE - CO2 26 mmol/L (21-32); CHLORIDE 98 mmol/L (101-111); CHOL/HDL RATIO 2.9 (<5.0); CHOLESTEROL 124 mg/dL; CREATININE 1.1 mg/dL (0.6-1.2); GFR - MDRD 64 (>89); HDL CHOLESTEROL 43 mg/dL; LDL CHOLESTEROL,CALCULATED 64 mg/dL; LDL/HDL RATIO 1.5 (<3.6); SODIUM 136 mmol/L (135-145); TOTAL PROTEIN 7.3 g/dL (6.7-8.2); VLDL CHOLESTEROL 17 mg/dL
[2018-05-12 13:27] LABS: GLUCOSE 537 mg/dL (70-100)
[2018-05-12 13:41] LABS: HB2 TOTAL 12.9 g/dL; HEMOGLOBIN A1C 0.98 g/dL; HEMOGLOBIN A1C % 9.1 % (4.6-6.2)
== END 2018-05-12 07:10 | disposition home or self-care (01) ==
LOC: LAB.WCP 07:09
PROVIDERS: ATTEND Family Medicine
DX: E11.9 Type 2 diabetes mellitus without complications (principal); I10 Essential (primary) hypertension; E78.5 Hyperlipidemia, unspecified
CPT/HCPCS: 36415; 80053; 80061; 82043; 83036; 83721; 84443

== ENCOUNTER 2018-05-14 09:31 | Outpatient (CLI) | payer MEDICARE, OTHER | END 2018-05-14 09:32 | disposition critical access hospital (66) | LOC: EMS 09:31 | PROVIDERS: ATTEND Surgery | DX: R41.0 Disorientation, unspecified (principal); R53.1 Weakness; R73.09 Other abnormal glucose | CPT/HCPCS: A0425; A0427 ==

== ENCOUNTER 2018-05-14 09:54 | Inpatient (IN) | payer MEDICARE, OTHER ==
[2018-05-14] MEDS ORDERED: SODIUM CHLORIDE 0.9% 1,000 ML IV ONE (10:15)
--- NOTE | 2018-05-14 10:18 | ED Physician Documentation ---
History of Present Illness - Stated complaint Stated Complaint: ELEVATED BLOOD SUGAR - Chief complaint Chief Complaint: General - Additonal information Additional information: hx from pt and EMS 82 male IDDM blood sugar running "HI" pt not sure if he has been taking his meds correctly denies any fever cough NV has had diarrhea denies any pain no [employer] CP AP no fall or injury per EMS his BM upon their arrival was not bloody Review of Systems Constitutional: denies: Fever Cardiac: denies: Chest pain / pressure Respiratory: denies: Dyspnea GI: reports: Diarrhea. denies: Abdominal Pain, Nausea, Vomiting Neurologic: reports: Altered mental status. denies: Headache Endocrine: denies: Easy bruising / bleeding Immunocompromised: denies: Immunocompromised PD PAST MEDICAL HISTORY - Past Medical History Cardiovascular: Hypertension Respiratory: Other Endocrine/Autoimmune: Type 1 diabetes GI: Ulcers : Benign prostate hypertrophy, None, Incontinence, Nocturia HEENT: Chronic vision loss Psych: None Musculoskeletal: Other Derm: None - Past Surgical History Past Surgical History: Yes General: Cholecystectomy, Other Ortho: Amputation, Other HEENT: Cataracts - Present Medications Home Medications: Ambulatory Orders Medication Instructions Recorded Confirmed Simvastatin [Zocor] 20 mg PO QPM 03/31/13 05/14/18 Insulin Glargine,Hum.rec.anlog 25 units SUBQ BID 12/30/14 01/31/18 [Lantus] Carvedilol [Coreg] 12.5 mg PO BID 01/31/18 05/14/18 Pantoprazole [Protonix] 40 mg PO QDAC 01/31/18 05/14/18 Insulin Aspart [NovoLOG] 13 units SUBQ TIDWM 05/14/18 Losartan Potassium [Losartan 50 mg PO BID 05/14/18 05/14/18 Potassium] - Allergies Allergies/Adverse Reactions: Allergies Allergy/AdvReac Type Severity Reaction Status Date / Time cortisone [Cortisone] AdvReac Intermediate Respiratory Verified 05/14/18 10:08 - Social History Does the pt smoke?: No Smoking Status: Former smoker Does the pt drink ETOH?: No Does the pt have substance abuse?: No - Immunizations Immunizations are current?: Yes - POLST Patient has POLST: No POLST Status: Full Code PD ED PE NORMAL - Vitals Vital signs reviewed: Yes - General General: No: Alert and oriented X 3 (confused) - HEENT HEENT: Other (no ketotisis noted on breath) - Neck Neck: Supple, no meningeal sign - Cardiac Cardiac: RRR - Respiratory Respiratory: No respiratory distress, Clear bilaterally - Abdomen Abdomen: Soft, Non tender - Extremities Extremities: Other (R AKA, LLL with erythema bu no warmth to pretib region, no open ulvers or wound on foot, poor pedal pulse but + cap refill) - Neuro Neuro: No: Alert and oriented X 3 (confused, bu awake alert and trying to answer questions) Results - Vitals Vitals: Vital Signs - 24 hr 05/14/18 10:05 Temperature 36.3 C L Heart Rate 81 Respiratory 16 Rate Blood Pressure 124/46 L O2 Saturation 100 Oxygen O2 Source [Without Activity] Nasal cannula O2 Source [With Activity] Nasal cannula O2 Source Room air - EKG (time done) 1115 Rate: Rate (enter#) (83) Rhythm: NSR Ischemia: ST depression (slight, lateral), Q waves (ant) - Labs Labs: Laboratory Tests 05/14/18 05/14/18 05/14/18 10:29 10:29 10:29 WBC 11.5 H RBC 3.64 L Hgb 11.2 L Hct 37.4 L MCV 102.7 H MCH 30.8 MCHC 30.0 L RDW 15.7 H Plt Count 131 MPV 12.3 H Neut # (Auto) 9.9 H Lymph # (Auto) 0.7 L [place] # (Auto) 0.8 Eos # (Auto) 0.0 Baso # (Auto) 0.1 Absolute Nucleated RBC 0.00 Nucleated RBC % 0.0 VBG pH VBG pCO2 VBG pO2 VBG HCO3 VBG Total CO2 VBG O2 Saturation VBG Base Excess Sodium 133 L Potassium 5.4 H Chloride 95 L Carbon Dioxide 13 L Anion Gap 25.0 H BUN 76 H Creatinine 2.2 H Estimated GFR (MDRD) 29 L Glucose 984 H* Glycated Hemoglobin Estim Average Glucose Calcium 8.7 Phosphorus Magnesium Troponin I 0.12 Serum Ketones MODERATE H 05/14/18 05/14/18 05/14/18 10:29 10:29 10:29 WBC RBC Hgb Hct MCV MCH MCHC RDW Plt Count MPV Neut # (Auto) Lymph # (Auto) [place] # (Auto) Eos # (Auto) Baso # (Auto) Absolute Nucleated RBC Nucleated RBC % VBG pH 7.178 L VBG pCO2 29.5 L VBG pO2 57.4 H VBG HCO3 10.7 L VBG Total CO2 11.6 L VBG O2 Saturation 84.7 H VBG Base Excess -16.3 L Sodium Potassium Chloride Carbon Dioxide Anion Gap BUN Creatinine Estimated GFR (MDRD) Glucose Glycated Hemoglobin 9.6 H Estim Average Glucose 229 H Calcium Phosphorus 6.3 H Magnesium 2.8 Troponin I Serum Ketones - Rads (name of study) CXR Radiology: See rad report (no acute) PD MEDICAL DECISION MAKING - ED course ED course: DKA given 1 L NS and started insulin gtt likely due to med non compliance - pt does not know whether or not he has taken meds no infections identified thus far - CXR clear, L jo erythema but not warm streaking tender or swollen, waiting on UA EKG shows some slight depression but trop so far neg - merits serial spoke to hospitalist who will admit - Sepsis Event Vital Signs: Vital Signs - 24 hr 05/14/18 10:05 Temperature 36.3 C L Heart Rate 81 Respiratory 16 Rate Blood Pressure 124/46 L O2 Saturation 100 Oxygen O2 Source [Without Activity] Nasal cannula O2 Source [With Activity] Nasal cannula O2 Source Room air Departure - Departure Disposition: 66 [facility] DC/Xfer Clinical Impression: DKA (diabetic ketoacidoses) Qualifiers: Diabetes mellitus type: type 1 Diabetes mellitus complication detail: without coma Qualified Code(s): E10.10 - Type 1 diabetes mellitus with ketoacidosis without coma Discharge Date/Time: 05/14/18 12:26
[2018-05-14 10:47] LABS: BASOPHILS # (AUTO) 0.1 10^3/uL (0.0-0.1); BASOPHILS % (AUTO) 0.6 %; EOSINOPHILS % (AUTO) 0.1 %; HGB - HEMOGLOBIN 11.2 g/dL (14.0-18.0); LYMPHOCYTES # (AUTO) 0.7 10^3/uL (1.5-3.5); LYMPHOCYTES % (AUTO) 5.9 %; MEAN CORPUSCULAR HEMOGLOBIN 30.8 pg (27.0-31.0); MEAN CORPUSCULAR VOLUME 102.7 fL (80.0-94.0); MEAN PLATELET VOLUME 12.3 fL (7.4-11.4); MONOCYTES # (AUTO) 0.8 10^3/uL (0.0-1.0); MONOCYTES % (AUTO) 7.1 %; NEUTROPHILS # (AUTO) 9.9 10^3/uL (1.5-6.6); NEUTROPHILS % (AUTO) 86.3 %; PLT - PLATELET COUNT 131 10^3/uL (130-450); RED BLOOD COUNT 3.64 10^6/uL (4.70-6.10); RED CELL DISTRIBUTION WIDTH 15.7 % (12.0-15.0); WHITE BLOOD COUNT 11.5 x10^3/uL (4.8-10.8)
[2018-05-14 10:50] LABS: VBG PCO2 29.5 mmHg (41-51); VBG PH 7.178 (7.31-7.41); VBG PO2 57.4 mmHg (25-47)
[2018-05-14 10:51] LABS: VBG BASE EXCESS -16.3 mmol/L (-2 - +2); VBG TOTAL CO2 11.6 mmol/L (24-29)
--- NOTE | 2018-05-14 10:53 | XRAY Report ---
Procedure Date: 05/14/2018 Accession Number: [id number] / [id number] Procedure: XR - Chest 1 View X-Ray CPT Code: 54073 FULL RESULT: EXAM: CHEST RADIOGRAPHY EXAM DATE: 05/14/2018 10:33 AM. CLINICAL HISTORY: Altered mental status. High blood sugar. COMPARISON: CHEST 1 VIEW 02/09/2018. TECHNIQUE: 1 view. FINDINGS: Lungs/Pleura: No focal opacities evident. No pleural effusion. No pneumothorax. Mediastinum: Within exam limitations, the cardiomediastinal contour is normal. Other: None. IMPRESSION: No consolidation evident. [facility]
[2018-05-14] MEDS ORDERED: INSULIN REGULAR HUMAN 100 UNIT in SODIUM CHLORIDE 0.9% 100ML 99 ML IV SCH ×3 (11:00→21:00)
[2018-05-14 11:01] LABS: BUN - BLOOD UREA NITROGEN 76 mg/dL (6-20); CALCIUM 8.7 mg/dL (8.5-10.3); CARBON DIOXIDE - CO2 13 mmol/L (21-32); CHLORIDE 95 mmol/L (101-111); CREATININE 2.2 mg/dL (0.6-1.2); GFR - MDRD 29 (>89); SODIUM 133 mmol/L (135-145)
[2018-05-14 11:02] LABS: GLUCOSE 984 mg/dL (70-100)
[2018-05-14] MEDS ORDERED: INSULIN REGULAR HUMAN 100 UNIT in SODIUM CHLORIDE 0.9% 100ML 99 ML IV STA (11:03)
[2018-05-14 11:14] LABS: KETONES, SERUM (ACETEST) MODERATE (NEGATIVE)
[2018-05-14] MEDS ORDERED: SODIUM CHLORIDE FLUSH 0.9% 10 ML SYRINGE IVP PRN (11:20)
[2018-05-14] MEDS ORDERED: PROCHLORPERAZINE 10 MG/2 ML VIAL IVP PRN (11:20)
[2018-05-14 12:12] LABS: MAGNESIUM 2.8 mg/dL (1.7-2.8); PHOSPHORUS 6.3 mg/dL (2.5-4.6)
[2018-05-14 12:15] LABS: BILIRUBIN,URINE NEGATIVE (NEGATIVE); GLUCOSE, URINE (UA) >=1000 mg/dL (NEGATIVE); KETONES,URINE (UA) 40 mg/dL (NEGATIVE); LEUKOCYTE ESTERASE, URINE NEGATIVE (NEGATIVE); NITRITE,URINE NEGATIVE (NEGATIVE); OCCULT BLOOD,URINE TRACE-INTA (NEGATIVE); PROTEIN,URINE NEGATIVE (NEGATIVE); UROBILINOGEN,URINE 0.2 (NORMAL) E.U./dL (NORMAL)
[2018-05-14 12:20] LABS: CLARITY,URINE CLEAR (CLEAR)
[2018-05-14] MEDS: NS W/20 MEQ KCL 1,000 ML IV SCH ×2 (12:30→22:10)
[2018-05-14 12:34] LABS: HB2 TOTAL 11.6 g/dL; HEMOGLOBIN A1C 0.95 g/dL; HEMOGLOBIN A1C % 9.6 % (4.6-6.2)
[2018-05-14 12:40] LABS: VBG BASE EXCESS -17.5 mmol/L (-2 - +2); VBG PH 7.167 (7.31-7.41); VBG PO2 65.2 mmHg (25-47); VBG TOTAL CO2 10.4 mmol/L (24-29)
[2018-05-14 13:42] LABS: BUN - BLOOD UREA NITROGEN 76 mg/dL (6-20); CALCIUM 8.3 mg/dL (8.5-10.3); CHLORIDE 96 mmol/L (101-111); CREATININE 2.1 mg/dL (0.6-1.2); GFR - MDRD 30 (>89); MAGNESIUM 2.6 mg/dL (1.7-2.8); SODIUM 135 mmol/L (135-145)
[2018-05-14 13:43] LABS: CARBON DIOXIDE - CO2 11 mmol/L (21-32)
[2018-05-14 13:44] LABS: GLUCOSE 872 mg/dL (70-100)
[2018-05-14 14:13] LABS: KETONES, SERUM (ACETEST) MODERATE (NEGATIVE)
--- NOTE | 2018-05-14 14:15 | HISTORY & PHYSICAL EXAMINATION ---
Chief Complaint - Chief Complaint Chief Complaint: Increasing weakness and confusion History of Present Illness - Admitted From Admitted From:: Home - History Obtained From History obtained from: Patient, Ed physician Exam Limitations: Pt is confused - History of Present Illness HPI Comment/Other: Mr. 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 Mr. White relates that he may have been too confused to take his diabetes medications properly feels like he has been getting worse daily. On presentation to the emergency department the patient had blood sugar of 984. His pH was 7.178 and his lab work showed moderate ketones. He is also found to be mildly hyponatremic and hyperkalemic. His creatinine, which typically runs around 1.0, was 2.2 with an elevated BUN of 76 indicating significant dehydration. He was also found to have low calcium levels and elevated phosphorus. We will admit him to the intensive care unit on insulin drip for diabetic ketoacidosis and address his multiple comorbidities while he is here. We will correct all electrolyte abnormalities and when he is stable enough transfer him to the medical floor. History - Past Medical History Cardiovascular: reports: Hypertension Respiratory: reports: Other Endocrine/Autoimmune: reports: Type 1 diabetes GI: reports: Ulcers : reports: Benign prostate hypertrophy, None, Incontinence, Nocturia HEENT: reports: Chronic vision loss Psych: reports: None Musculoskeletal: reports: Other Derm: reports: None MRSA Hx?: No - Past Surgical History General: reports: Cholecystectomy, Other Ortho: reports: Amputation, Other HEENT: reports: Cataracts - Family & Social History Family History: Mother: (father at 83yrs from cancer, Mother at 84 yrs from DM complications), Father: Family History Comment/Other: Pt is living at [facility], living alone. He has two daughters, one is living at [facility], another one just moved to [place]. Living arrangement: At home Living Situation: Alone Social History Notes: Pt denies cigarette smoking, alcohol and drug problem - Substance History Use: Uses substance without health or social issues: NONE Abuse: Recurrent use of substance despite neg consequences: NONE Dependence: Experiences withdrawal or developed tolerances: NONE - POLST Patient has POLST: No POLST Status: Full Code Meds/Allgy - Home Medications Home Medications: Ambulatory Orders Medication Instructions Recorded Confirmed Simvastatin [Zocor] 20 mg PO QPM 03/31/13 05/14/18 Insulin Glargine,Hum.rec.anlog 25 units SUBQ BID 12/30/14 01/31/18 [Lantus] Carvedilol [Coreg] 12.5 mg PO BID 01/31/18 05/14/18 Pantoprazole [Protonix] 40 mg PO QDAC 01/31/18 05/14/18 Insulin Aspart [NovoLOG] 13 units SUBQ TIDWM 05/14/18 Losartan Potassium [Losartan 50 mg PO BID 05/14/18 05/14/18 Potassium] - Allergies Allergies/Adverse Reactions: Allergies Allergy/AdvReac Type Severity Reaction Status Date / Time cortisone [Cortisone] AdvReac Intermediate Respiratory Verified 05/14/18 10:08 Review of Systems - Constitutional Constitutional: reports: Fatigue, Weakness. denies: Fever, Chills, Malaise - Eyes Eyes: denies: Pain, Irritation, Amaurosis, Blurred vision, Dipolpia - Ears, Nose & Throat Ears, Nose & Throat: denies: Ear pain, Hearing loss, Tinnitus, Vertigo, Nasal pain, Nosebleeds - Cardiovascular Cariovascular: denies: Irregular heart rate, Palpitations, Chest pain, Edema, Syncope - Respiratory Respiratory: denies: Cough, Sputum production, Wheezing, Snoring, Hemoptysis, Orthopnea, SOB at rest, SOB with exertion - Gastrointestinal Gastrointestinal: denies: Abdominal pain, Abdominal distention, Constipation, Diarrhea, Change in bowel habits, Rectal bleeding - Genitourinary Genitourinary: denies: Dysuria, Frequency, Urgency, Hematuria - Musculoskeletal Musculoskeletal: denies: Muscle pain, Back pain, Muscle aches, Stiffness - Integumentary Integumentary: denies: Rash, Pruritis, Lesions, Dryness - Neurological Neurological: denies: General weakness, Focal weakness, Headache, Dizziness - Psychiatric Psychiatric: denies: Depression, Anxiety, Suicidal, Hallucinations - Endocrine Endocrine: reports: Polyuria, Polydypsia. denies: Polyphagia - Hematologic/Lymphatic Hematologic/Lymphatic: denies: Anemia, Bruising, Petechiae, Lymphadenopathy - All Other Systems All Other Systems: reports: Reviewed and negative Exam - Vital Signs Reviewed Vital Signs: Yes Vital Signs: Vital Signs x48h Pulse Resp BP Pulse Ox 05/14/18 13:00 88 18 124/45 L 99 05/14/18 12:35 88 16 136/56 H 99 - Physical Exam General Appearance: positive: No acute distress, Lethargic Eyes Bilateral: positive: Normal inspection, PERRL, EOMI, No lid inflammation, Conjunctivae nml, No scleral icterus ENT: positive: ENT inspection nml, Pharynx nml, No signs of dehydration Neck: positive: Nml inspection, Thyroid nml, No JVD, Trachea midline. negative : Thyromegaly Respiratory: positive: Chest non-tender, No respiratory distress, Breath sounds nml. negative: Wheezes, Rales, Rhonchi Cardiovascular: positive: Regular rate & rhythm, No murmur, No gallop Peripheral Pulses: positive: 1+ Abdomen: positive: Non-tender, No organomegaly, Nml bowel sounds, No distention. negative: Guarding, Rebound Back: positive: Nml inspection. negative: CVA tenderness (R), CVA tenderness (L ) Skin: positive: Color nml, No rash, Warm, Dry. negative: Cyanosis Extremities: positive: Non-tender, Full ROM, Nml appearance, No pedal edema Neurologic/Psychiatric: positive: Oriented x3, CN's nml (2-12), Motor nml, Sensation nml, Mood/affect nml Conclusion/Plan - Problem List (1) DKA (diabetic ketoacidoses) Conclusion/Plan: The patient presents in diabetic ketoacidosis. We will admit him to the intensive care unit, start him on an insulin drip, monitor his ketones and electrolytes, correct his fluid deficit, and address any other comorbidities as they occur. It is somewhat concerning that this 82-year-old gentleman lives by himself. He may need to be placed in an assisted living facility. I will ask social work to assess the situation. Qualifiers: Diabetes mellitus type: type 1 Diabetes mellitus complication detail: without coma Qualified Code(s): E10.10 - Type 1 diabetes mellitus with ketoacidosis without coma (2) Type 2 diabetes mellitus Conclusion/Plan: The patient is currently on an insulin drip but when we have corrected his diabetic ketoacidosis we will need to look at the patient's medication regimen closely to see how he got to have a blood sugar of 984. Again, he may need assisted living facility placement. (3) Gastroesophageal reflux disease Conclusion/Plan: The patient has a history of gastroesophageal reflux disease and takes Protonix at home. We will continue this while he is inpatient. (4) Congestive heart failure (CHF) Conclusion/Plan: The patient does not know if he has a history of congestive heart failure but is on Coreg 12.5 mg twice a day. There is no evidence of an echocardiogram in the chart. We will obtain an echocardiogram on the patient is inpatient. (5) HTN (hypertension) Conclusion/Plan: Patient has a history of hypertension and takes losartan at home. We will continue this in hospital. Qualifiers: Hypertension type: essential hypertension Qualified Code(s): I10 - Essential (primary) hypertension - Lab Results Lab results reviewed: Yes Kali Bones: 05/14/18 10:29 05/14/18 13:23 Core Measures - Anticipated LOS I expect patient to be DC'd or transferred within 96 hours.: Yes - DVT/VTE - Prophylaxis VTE/DVT Device ordered at admit?: Yes
[2018-05-14 15:40] LABS: KETONES, SERUM (ACETEST) MODERATE (NEGATIVE)
[2018-05-14 15:55] LABS: BUN - BLOOD UREA NITROGEN 75 mg/dL (6-20); CALCIUM 8.6 mg/dL (8.5-10.3); CARBON DIOXIDE - CO2 14 mmol/L (21-32); CHLORIDE 101 mmol/L (101-111); CREATININE 2.1 mg/dL (0.6-1.2); GFR - MDRD 30 (>89); MAGNESIUM 2.4 mg/dL (1.7-2.8); SODIUM 137 mmol/L (135-145)
[2018-05-14 17:37] LABS: KETONES, SERUM (ACETEST) SMALL (NEGATIVE)
[2018-05-14 17:44] LABS: GLUCOSE 672 mg/dL (70-100)
[2018-05-14] MEDS: SODIUM CHLORIDE FLUSH 0.9% 10 ML SYRINGE IVP SCH (18:49)
[2018-05-14 19:43] LABS: KETONES, SERUM (ACETEST) SMALL (NEGATIVE)
[2018-05-14 19:54] LABS: GLUCOSE 553 mg/dL (70-100)
[2018-05-14] MEDS: INSULIN GLARGINE 300 UNIT/3 ML PEN SUBQ SCH (20:50)
[2018-05-14 21:40] LABS: KETONES, SERUM (ACETEST) SMALL (NEGATIVE)
[2018-05-14 21:42] LABS: GLUCOSE 443 mg/dL (70-100)
[2018-05-14] MEDS: ASPIRIN EC 325 MG TABLET PO SCH (22:20)
[2018-05-14] MEDS: NITROGLYCERIN 2% PASTE TOP SCH (22:20)
[2018-05-14] MEDS: CARVEDILOL 12.5 MG TABLET PO SCH (22:20)
[2018-05-14 23:32] LABS: CHOL/HDL RATIO 2.6 (<5.0); CHOLESTEROL 105 mg/dL; HDL CHOLESTEROL 40 mg/dL; LDL CHOLESTEROL,CALCULATED 57 mg/dL; LDL/HDL RATIO 1.4 (<3.6); VLDL CHOLESTEROL 8 mg/dL
[2018-05-15 00:14] LABS: CALCIUM 8.8 mg/dL (8.5-10.3); CREATININE 1.7 mg/dL (0.6-1.2)
[2018-05-15] MEDS ORDERED: INSULIN REGULAR HUMAN 100 UNIT in SODIUM CHLORIDE 0.9% 100ML 99 ML IV SCH (00:38)
[2018-05-15 01:21] LABS: GLUCOSE 787 mg/dL (70-100)
[2018-05-15] MEDS: SODIUM CHLORIDE FLUSH 0.9% 10 ML SYRINGE IVP SCH ×4 (02:03→21:52)
[2018-05-15] MEDS: NITROGLYCERIN 2% PASTE TOP SCH ×3 (06:01→21:46)
[2018-05-15 06:03] LABS: BASOPHILS % (AUTO) 0.1 %; HGB - HEMOGLOBIN 11.6 g/dL (14.0-18.0); LYMPHOCYTES # (AUTO) 1.4 10^3/uL (1.5-3.5); LYMPHOCYTES % (AUTO) 8.1 %; MEAN CORPUSCULAR HEMOGLOBIN 30.4 pg (27.0-31.0); MEAN CORPUSCULAR VOLUME 92.2 fL (80.0-94.0); MEAN PLATELET VOLUME 11.3 fL (7.4-11.4); MONOCYTES # (AUTO) 1.3 10^3/uL (0.0-1.0); MONOCYTES % (AUTO) 7.6 %; NEUTROPHILS # (AUTO) 14.5 10^3/uL (1.5-6.6); NEUTROPHILS % (AUTO) 84.2 %; PLT - PLATELET COUNT 155 10^3/uL (130-450); RED BLOOD COUNT 3.81 10^6/uL (4.70-6.10); RED CELL DISTRIBUTION WIDTH 14.3 % (12.0-15.0); WHITE BLOOD COUNT 17.2 x10^3/uL (4.8-10.8)
[2018-05-15 06:09] LABS: BUN - BLOOD UREA NITROGEN 69 mg/dL (6-20); CALCIUM 8.6 mg/dL (8.5-10.3); CARBON DIOXIDE - CO2 26 mmol/L (21-32); CHLORIDE 115 mmol/L (101-111); CREATININE 1.3 mg/dL (0.6-1.2); GFR - MDRD 53 (>89); GLUCOSE 109 mg/dL (70-100); SODIUM 147 mmol/L (135-145)
[2018-05-15 06:23] LABS: KETONES, SERUM (ACETEST) SMALL (NEGATIVE)
[2018-05-15] MEDS ORDERED: DEXTROSE 50% ABBOJECT 25 GM/50 ML SYRINGE IVP ONE (07:45)
[2018-05-15] MEDS: D5.45NS W/20 MEQ KCL 1,000 ML IV SCH ×2 (08:01→15:58)
[2018-05-15] MEDS: ASPIRIN EC 325 MG TABLET PO SCH (08:50)
[2018-05-15] MEDS: FAMOTIDINE 20 MG TABLET PO SCH (08:51)
[2018-05-15] MEDS: INSULIN GLARGINE 300 UNIT/3 ML PEN SUBQ SCH ×2 (08:51→21:46)
[2018-05-15] MEDS: LOSARTAN 50 MG TABLET PO SCH ×2 (08:51→21:07)
[2018-05-15] MEDS: CARVEDILOL 12.5 MG TABLET PO SCH ×2 (08:51→21:06)
[2018-05-15] MEDS: POLYETHYLENE GLYCOL 3350 17 GM PACKET PO SCH (08:52)
[2018-05-15 09:52] LABS: HB2 TOTAL 12.1 g/dL; HEMOGLOBIN A1C 1.01 g/dL; HEMOGLOBIN A1C % 9.8 % (4.6-6.2)
[2018-05-15] MEDS: INSULIN ASPART 300 UNIT/3 ML PEN SUBQ SCH ×4 (12:12→22:26)
--- NOTE | 2018-05-15 14:14 | PROVIDER PROGRESS NOTE ---
Subjective - Prog Note Date Prog Note Date: 05/15/18 Prog Note Time: 13:50 - Subjective Subjective: The patient is somnolent but feels well. He denies any fevers, chills, shortness of breath, or chest pain. He has sleeping most of the day and has been drinking fluids. Current Medications - Current Medications Current Medications: Active Medications Generic Name Dose Route Start Last Admin Trade Name Freq PRN Reason Stop Dose Admin Aspirin 325 mg 05/14/18 22:00 05/15/18 08:50 Ecotrin PO 325 mg DAILY YAA Administration Carvedilol 12.5 mg 05/14/18 22:00 05/15/18 08:51 Coreg PO 12.5 mg BID YAA Administration Famotidine 20 mg 05/15/18 09:00 05/15/18 08:51 Pepcid PO 20 mg DAILY YAA Administration Potassium Chloride/Dextrose/Sod Cl 1,000 mls @ 125 mls/hr 05/15/18 08:00 12/28 08:01 D5.45ns W/20 Meq Kcl IV 125 mls/hr .Q8H YAA Administration Insulin Aspart 1 - 9 unit 05/15/18 12:00 05/15/18 12:12 Novolog SUBQ 7 unit 0800,1200,1700,2100 YAA Administration Protocol Insulin Glargine 25 unit 05/14/18 21:00 05/15/18 08:51 Lantus Solostar SUBQ 25 unit BID YAA Administration Losartan Potassium 50 mg 05/15/18 09:00 05/15/18 08:51 Cozaar PO 50 mg BID YAA Administration Nitroglycerin 0.25 inch 05/14/18 22:00 05/15/18 13:39 Nitro-Bid (Pkt) TOP 0.25 inch Q8HR YAA Administration Polyethylene Glycol 17 gm 05/15/18 09:00 05/15/18 08:52 Miralax PO 17 gm DAILY YAA Administration Prochlorperazine Edisylate 10 mg 05/14/18 11:20 Compazine Inj IVP Q6HR PRN Nausea / Vomiting Sodium Chloride 10 ml 05/14/18 17:00 05/15/18 08:52 Normal Saline Flush 0.9% IVP 10 ml 0100,0900,1700 YAA Administration Sodium Chloride 10 ml 05/14/18 11:20 Normal Saline Flush 0.9% IVP PRN PRN NEEDED PER PROVIDER ORDERS RX: Simvastatin [Zocor] 20 mg PO QPM 03/31/13 RX: Insulin Glargine,Hum.rec.anlog [Lantus] 25 units SUBQ BID 12/30/14 RX: Carvedilol [Coreg] 12.5 mg PO BID 01/31/18 RX: Pantoprazole [Protonix] 40 mg PO QDAC 01/31/18 Insulin Aspart [NovoLOG] 13 units SUBQ TIDWM 05/14/18 Losartan Potassium [Losartan Potassium] 50 mg PO BID 05/14/18 Objective - Vital Signs/Intake & Output Reviewed Vital Signs: Yes Vital Signs: Vital Signs x48h Temp Pulse Resp BP Pulse Ox 05/15/18 14:00 70 16 124/54 L 94 05/15/18 13:00 65 12 136/62 H 95 05/15/18 12:00 36.9 C 66 12 120/64 94 05/15/18 11:00 62 18 124/55 L 92 05/15/18 10:00 71 16 131/63 H 97 05/15/18 09:00 80 16 142/66 H 95 05/15/18 08:00 73 20 150/63 H 97 05/15/18 07:00 68 13 116/67 95 Intake & Output: Intake & Output 05/12/18 05/13/18 05/14/18 05/15/18 23:59 23:59 23:59 23:59 Intake Total 2173.667 1951.933 Output Total 1750 1525 Balance 423.667 426.933 - Objective General Appearance: positive: No acute distress, Lethargic Eyes Bilateral: positive: Normal inspection, PERRL, EOMI, No lid inflammation, Conjunctivae nml, No scleral icterus ENT: positive: ENT inspection nml, Pharynx nml, No signs of dehydration Neck: positive: Nml inspection, Thyroid nml, No JVD, Trachea midline. negative : Thyromegaly Respiratory: positive: Chest non-tender, No respiratory distress, Breath sounds nml. negative: Wheezes, Rales, Rhonchi Cardiovascular: positive: Regular rate & rhythm, No murmur, No gallop Abdomen: positive: Non-tender, No organomegaly, Nml bowel sounds, No distention. negative: Guarding, Rebound Back: positive: Nml inspection. negative: CVA tenderness (R), CVA tenderness (L ) Skin: positive: Color nml, No rash, Warm, Dry. negative: Cyanosis Extremities: positive: Non-tender, Full ROM, No pedal edema, Other (Patient is status post right below-knee amputation. There is a rash to his left lower leg. ). negative: Joint swelling Neurologic/Psychiatric: positive: CN's nml (2-12), Disoriented to place, Disoriented to time, Weakness, Depressed mood/affect - Lab Results Fish Bones: 05/15/18 05:30 05/15/18 05:30 Other Labs: Lab Results x24hrs 05/15/18 05/15/18 05/15/18 Range/Units 12:13 09:29 09:29 WBC (4.8-10.8) x10^3/uL RBC (4.70-6.10) 10^6/uL Hgb (14.0-18.0) g/dL Hct (42.0-52.0) % MCV (80.0-94.0) fL MCH (27.0-31.0) pg MCHC (32.0-36.0) g/dL RDW (12.0-15.0) % Plt Count (130-450) 10^3/uL MPV (7.4-11.4) fL Neut # (Auto) (1.5-6.6) 10^3/uL Lymph # (Auto) (1.5-3.5) 10^3/uL [place] # (Auto) (0.0-1.0) 10^3/uL Eos # (Auto) (0.0-0.7) 10^3/uL Baso # (Auto) (0.0-0.1) 10^3/uL Absolute Nucleated RBC x10^3/uL Nucleated RBC % /100WBC Sodium (135-145) mmol/L Potassium (3.5-5.0) mmol/L Chloride (101-111) mmol/L Carbon Dioxide (21-32) mmol/L Anion Gap (6-13) BUN (6-20) mg/dL Creatinine (0.6-1.2) mg/dL Estimated GFR (MDRD) (>89) Glucose (70-100) mg/dL Glycated Hemoglobin 9.8 H (4.6-6.2) % Estim Average Glucose 235 H (70-100) Calcium (8.5-10.3) mg/dL Magnesium (1.7-2.8) mg/dL Troponin I 5.96 H* (<0.49) ng/mL B-Natriuretic Peptide (5-100) pg/mL Triglycerides ( - 149) mg/dL Cholesterol ( - 199) mg/dL LDL Cholesterol, Calc ( - 129) mg/dL VLDL Cholesterol mg/dL HDL Cholesterol (60 - ) mg/dL LDL/HDL Ratio (<3.6) Cholesterol/HDL Ratio (<5.0) Serum Ketones SMALL H (NEGATIVE) 05/15/18 05/15/18 05/15/18 Range/Units 07:25 05:30 05:30 WBC 17.2 H (4.8-10.8) x10^3/uL RBC 3.81 L (4.70-6.10) 10^6/uL Hgb 11.6 L (14.0-18.0) g/dL Hct 35.1 L (42.0-52.0) % MCV 92.2 (80.0-94.0) fL MCH 30.4 (27.0-31.0) pg MCHC 33.0 (32.0-36.0) g/dL RDW 14.3 (12.0-15.0) % Plt Count 155 (130-450) 10^3/uL MPV 11.3 (7.4-11.4) fL Neut # (Auto) 14.5 H (1.5-6.6) 10^3/uL Lymph # (Auto) 1.4 L (1.5-3.5) 10^3/uL [place] # (Auto) 1.3 H (0.0-1.0) 10^3/uL Eos # (Auto) 0.0 (0.0-0.7) 10^3/uL Baso # (Auto) 0.0 (0.0-0.1) 10^3/uL Absolute Nucleated RBC 0.00 x10^3/uL Nucleated RBC % 0.0 /100WBC Sodium (135-145) mmol/L Potassium (3.5-5.0) mmol/L Chloride (101-111) mmol/L Carbon Dioxide (21-32) mmol/L Anion Gap (6-13) BUN (6-20) mg/dL Creatinine (0.6-1.2) mg/dL Estimated GFR (MDRD) (>89) Glucose (70-100) mg/dL Glycated Hemoglobin (4.6-6.2) % Estim Average Glucose (70-100) Calcium (8.5-10.3) mg/dL Magnesium (1.7-2.8) mg/dL Troponin I (<0.49) ng/mL B-Natriuretic Peptide 254 H (5-100) pg/mL Triglycerides ( - 149) mg/dL Cholesterol ( - 199) mg/dL LDL Cholesterol, Calc ( - 129) mg/dL VLDL Cholesterol mg/dL HDL Cholesterol (60 - ) mg/dL LDL/HDL Ratio (<3.6) Cholesterol/HDL Ratio (<5.0) Serum Ketones SMALL H (NEGATIVE) 05/15/18 05/15/18 05/15/18 Range/Units 05:30 05:30 03:35 WBC (4.8-10.8) x10^3/uL RBC (4.70-6.10) 10^6/uL Hgb (14.0-18.0) g/dL Hct (42.0-52.0) % MCV (80.0-94.0) fL MCH (27.0-31.0) pg MCHC (32.0-36.0) g/dL RDW (12.0-15.0) % Plt Count (130-450) 10^3/uL MPV (7.4-11.4) fL Neut # (Auto) (1.5-6.6) 10^3/uL Lymph # (Auto) (1.5-3.5) 10^3/uL [place] # (Auto) (0.0-1.0) 10^3/uL Eos # (Auto) (0.0-0.7) 10^3/uL Baso # (Auto) (0.0-0.1) 10^3/uL Absolute Nucleated RBC x10^3/uL Nucleated RBC % /100WBC Sodium 147 H (135-145) mmol/L Potassium 3.6 (3.5-5.0) mmol/L Chloride 115 H (101-111) mmol/L Carbon Dioxide 26 (21-32) mmol/L Anion Gap 6.0 (6-13) BUN 69 H (6-20) mg/dL Creatinine 1.3 H (0.6-1.2) mg/dL Estimated GFR (MDRD) 53 L (>89) Glucose 109 H (70-100) mg/dL Glycated Hemoglobin (4.6-6.2) % Estim Average Glucose (70-100) Calcium 8.6 (8.5-10.3) mg/dL Magnesium (1.7-2.8) mg/dL Troponin I 11.37 H* (<0.49) ng/mL B-Natriuretic Peptide (5-100) pg/mL Triglycerides ( - 149) mg/dL Cholesterol ( - 199) mg/dL LDL Cholesterol, Calc ( - 129) mg/dL VLDL Cholesterol mg/dL HDL Cholesterol (60 - ) mg/dL LDL/HDL Ratio (<3.6) Cholesterol/HDL Ratio (<5.0) Serum Ketones SMALL H SMALL H (NEGATIVE) 05/15/18 05/14/18 05/14/18 Range/Units 00:50 22:48 22:48 WBC (4.8-10.8) x10^3/uL RBC (4.70-6.10) 10^6/uL Hgb (14.0-18.0) g/dL Hct (42.0-52.0) % MCV (80.0-94.0) fL MCH (27.0-31.0) pg MCHC (32.0-36.0) g/dL RDW (12.0-15.0) % Plt Count (130-450) 10^3/uL MPV (7.4-11.4) fL Neut # (Auto) (1.5-6.6) 10^3/uL Lymph # (Auto) (1.5-3.5) 10^3/uL [place] # (Auto) (0.0-1.0) 10^3/uL Eos # (Auto) (0.0-0.7) 10^3/uL Baso # (Auto) (0.0-0.1) 10^3/uL Absolute Nucleated RBC x10^3/uL Nucleated RBC % /100WBC Sodium 143 (135-145) mmol/L Potassium 3.7 (3.5-5.0) mmol/L Chloride 110 (101-111) mmol/L Carbon Dioxide 26 (21-32) mmol/L Anion Gap 7.0 (6-13) BUN 71 H (6-20) mg/dL Creatinine 1.7 H (0.6-1.2) mg/dL Estimated GFR (MDRD) 39 L (>89) Glucose 369 H (70-100) mg/dL Glycated Hemoglobin (4.6-6.2) % Estim Average Glucose (70-100) Calcium 8.8 (8.5-10.3) mg/dL Magnesium (1.7-2.8) mg/dL Troponin I (<0.49) ng/mL B-Natriuretic Peptide (5-100) pg/mL Triglycerides 42 ( - 149) mg/dL Cholesterol 105 ( - 199) mg/dL LDL Cholesterol, Calc 57 ( - 129) mg/dL VLDL Cholesterol 8 mg/dL HDL Cholesterol 40 L (60 - ) mg/dL LDL/HDL Ratio 1.4 (<3.6) Cholesterol/HDL Ratio 2.6 (<5.0) Serum Ketones SMALL H (NEGATIVE) 05/14/18 05/14/18 05/14/18 Range/Units 22:48 22:48 21:25 WBC (4.8-10.8) x10^3/uL RBC (4.70-6.10) 10^6/uL Hgb (14.0-18.0) g/dL Hct (42.0-52.0) % MCV (80.0-94.0) fL MCH (27.0-31.0) pg MCHC (32.0-36.0) g/dL RDW (12.0-15.0) % Plt Count (130-450) 10^3/uL MPV (7.4-11.4) fL Neut # (Auto) (1.5-6.6) 10^3/uL Lymph # (Auto) (1.5-3.5) 10^3/uL [place] # (Auto) (0.0-1.0) 10^3/uL Eos # (Auto) (0.0-0.7) 10^3/uL Baso # (Auto) (0.0-0.1) 10^3/uL Absolute Nucleated RBC x10^3/uL Nucleated RBC % /100WBC Sodium (135-145) mmol/L Potassium (3.5-5.0) mmol/L Chloride (101-111) mmol/L Carbon Dioxide (21-32) mmol/L Anion Gap (6-13) BUN (6-20) mg/dL Creatinine (0.6-1.2) mg/dL Estimated GFR (MDRD) (>89) Glucose 443 H (70-100) mg/dL Glycated Hemoglobin (4.6-6.2) % Estim Average Glucose (70-100) Calcium (8.5-10.3) mg/dL Magnesium (1.7-2.8) mg/dL Troponin I 8.20 H* (<0.49) ng/mL B-Natriuretic Peptide (5-100) pg/mL Triglycerides ( - 149) mg/dL Cholesterol ( - 199) mg/dL LDL Cholesterol, Calc ( - 129) mg/dL VLDL Cholesterol mg/dL HDL Cholesterol (60 - ) mg/dL LDL/HDL Ratio (<3.6) Cholesterol/HDL Ratio (<5.0) Serum Ketones SMALL H SMALL H (NEGATIVE) 05/14/18 05/14/18 05/14/18 Range/Units 20:14 19:30 18:10 WBC (4.8-10.8) x10^3/uL RBC (4.70-6.10) 10^6/uL Hgb (14.0-18.0) g/dL Hct (42.0-52.0) % MCV (80.0-94.0) fL MCH (27.0-31.0) pg MCHC (32.0-36.0) g/dL RDW (12.0-15.0) % Plt Count (130-450) 10^3/uL MPV (7.4-11.4) fL Neut # (Auto) (1.5-6.6) 10^3/uL Lymph # (Auto) (1.5-3.5) 10^3/uL [place] # (Auto) (0.0-1.0) 10^3/uL Eos # (Auto) (0.0-0.7) 10^3/uL Baso # (Auto) (0.0-0.1) 10^3/uL Absolute Nucleated RBC x10^3/uL Nucleated RBC % /100WBC Sodium (135-145) mmol/L Potassium (3.5-5.0) mmol/L Chloride (101-111) mmol/L Carbon Dioxide (21-32) mmol/L Anion Gap (6-13) BUN (6-20) mg/dL Creatinine (0.6-1.2) mg/dL Estimated GFR (MDRD) (>89) Glucose 511 H* 553 H* 611 H* (70-100) mg/dL Glycated Hemoglobin (4.6-6.2) % Estim Average Glucose (70-100) Calcium (8.5-10.3) mg/dL Magnesium (1.7-2.8) mg/dL Troponin I (<0.49) ng/mL B-Natriuretic Peptide (5-100) pg/mL Triglycerides ( - 149) mg/dL Cholesterol ( - 199) mg/dL LDL Cholesterol, Calc ( - 129) mg/dL VLDL Cholesterol mg/dL HDL Cholesterol (60 - ) mg/dL LDL/HDL Ratio (<3.6) Cholesterol/HDL Ratio (<5.0) Serum Ketones SMALL H (NEGATIVE) 05/14/18 05/14/18 05/14/18 Range/Units 17:19 17:19 16:27 WBC (4.8-10.8) x10^3/uL RBC (4.70-6.10) 10^6/uL Hgb (14.0-18.0) g/dL Hct (42.0-52.0) % MCV (80.0-94.0) fL MCH (27.0-31.0) pg MCHC (32.0-36.0) g/dL RDW (12.0-15.0) % Plt Count (130-450) 10^3/uL MPV (7.4-11.4) fL Neut # (Auto) (1.5-6.6) 10^3/uL Lymph # (Auto) (1.5-3.5) 10^3/uL [place] # (Auto) (0.0-1.0) 10^3/uL Eos # (Auto) (0.0-0.7) 10^3/uL Baso # (Auto) (0.0-0.1) 10^3/uL Absolute Nucleated RBC x10^3/uL Nucleated RBC % /100WBC Sodium (135-145) mmol/L Potassium (3.5-5.0) mmol/L Chloride (101-111) mmol/L Carbon Dioxide (21-32) mmol/L Anion Gap (6-13) BUN (6-20) mg/dL Creatinine (0.6-1.2) mg/dL Estimated GFR (MDRD) (>89) Glucose 672 H* 734 H* (70-100) mg/dL Glycated Hemoglobin (4.6-6.2) % Estim Average Glucose (70-100) Calcium (8.5-10.3) mg/dL Magnesium (1.7-2.8) mg/dL Troponin I 1.99 H* (<0.49) ng/mL B-Natriuretic Peptide (5-100) pg/mL Triglycerides ( - 149) mg/dL Cholesterol ( - 199) mg/dL LDL Cholesterol, Calc ( - 129) mg/dL VLDL Cholesterol mg/dL HDL Cholesterol (60 - ) mg/dL LDL/HDL Ratio (<3.6) Cholesterol/HDL Ratio (<5.0) Serum Ketones SMALL H (NEGATIVE) 05/14/18 05/14/18 05/14/18 Range/Units 15:27 14:30 13:23 WBC (4.8-10.8) x10^3/uL RBC (4.70-6.10) 10^6/uL Hgb (14.0-18.0) g/dL Hct (42.0-52.0) % MCV (80.0-94.0) fL MCH (27.0-31.0) pg MCHC (32.0-36.0) g/dL RDW (12.0-15.0) % Plt Count (130-450) 10^3/uL MPV (7.4-11.4) fL Neut # (Auto) (1.5-6.6) 10^3/uL Lymph # (Auto) (1.5-3.5) 10^3/uL [place] # (Auto) (0.0-1.0) 10^3/uL Eos # (Auto) (0.0-0.7) 10^3/uL Baso # (Auto) (0.0-0.1) 10^3/uL Absolute Nucleated RBC x10^3/uL Nucleated RBC % /100WBC Sodium 137 (135-145) mmol/L Potassium 3.7 (3.5-5.0) mmol/L Chloride 101 (101-111) mmol/L Carbon Dioxide 14 L (21-32) mmol/L Anion Gap 22.0 H (6-13) BUN 75 H (6-20) mg/dL Creatinine 2.1 H (0.6-1.2) mg/dL Estimated GFR (MDRD) 30 L (>89) Glucose 787 H* 833 H* (70-100) mg/dL Glycated Hemoglobin (4.6-6.2) % Estim Average Glucose (70-100) Calcium 8.6 (8.5-10.3) mg/dL Magnesium 2.4 (1.7-2.8) mg/dL Troponin I (<0.49) ng/mL B-Natriuretic Peptide (5-100) pg/mL Triglycerides ( - 149) mg/dL Cholesterol ( - 199) mg/dL LDL Cholesterol, Calc ( - 129) mg/dL VLDL Cholesterol mg/dL HDL Cholesterol (60 - ) mg/dL LDL/HDL Ratio (<3.6) Cholesterol/HDL Ratio (<5.0) Serum Ketones MODERATE H MODERATE H (NEGATIVE) - Diagnostic Imaging Diagnostic Imaging Results: positive: Final report reviewed Diagnostic Imaging Comments: EXAM: CHEST RADIOGRAPHY EXAM DATE: 05/14/2018 10:33 AM. CLINICAL HISTORY: Altered mental status. High blood sugar. COMPARISON: CHEST 1 VIEW 02/09/2018. TECHNIQUE: 1 view. FINDINGS: Lungs/Pleura: No focal opacities evident. No pleural effusion. No pneumothorax. Mediastinum: Within exam limitations, the cardiomediastinal contour is normal. Other: None. IMPRESSION: No consolidation evident. ABX Reporting Has patient been on IV antibiotics over the past 48 hours?: No Assessment/Plan - Problem List (1) Acute myocardial infarction Impression: We have been running troponin levels every 6 hours since the patient was admitted and found that his troponin went from an initial value of 0.19 up to 1.99, then 8.9 then 11.9. It is now trending downward at 5.96. We have placed the patient on Nitropaste and a beta-ryan, and his spironolactone was stopped. An echocardiogram showed no wall motion abnormalities and was only positive for mild to moderate left ventricular hypertrophy. (2) Congestive heart failure (CHF) Impression: Patient does not know if he has a history of congestive heart failure but is on Coreg 12.5 mg twice a day. When we saw the patient was having a heart attack we ordered an echocardiogram which has come back essentially normal. There are no signs of wall motion abnormalities or congestive heart failure seen on the echocardiogram done yesterday. (3) DKA (diabetic ketoacidoses) Impression: Patient's blood sugars have normalized from a high of 984 on admission. He is now off of the insulin drip and on Lantus with a sliding scale for coverage. I will recheck an ABG to see if he is still acidotic. He still has a small amount of ketones present. 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 Despite this his blood sugars have been fairly well-managed however it does appears that the patient is declining and now requires assistance with his medications. He is currently living in an independent living apartment in which there are long-term facility beds available. The family will discuss amongst themselves and come up with a plan. No matter what I believe that the patient needs help with his medications at the very least. At the present time the patient is receiving Lantus and is on sliding scale coverage. (5) Gastroesophageal reflux disease Impression: The patient has a history of gastroesophageal reflux disease and takes Protonix at home. We will continue this while he is inpatient. (6) HTN (hypertension) Impression: Patient has a history of hypertension and takes losartan at home. We will continue this in hospital. Qualifiers: Hypertension type: essential hypertension Qualified Code(s): I10 - Essential (primary) hypertension
[2018-05-15 15:14] LABS: ABG PCO2 43 mmHg (34-45); ABG PH 7.39 (7.35-7.45)
[2018-05-15 15:15] LABS: ABG BASE EXCESS 0.3 mmol/L (-2.0-3.0); ABG HCO3 25.4 mmol/L (22.0-26.0); ABG OXYGEN SATURATION 93 % (94-98); ABG PO2 68 mmHg (80-100); ABG TCO2 26.7 MMOL/L (21.0-29.0); ALLEN TEST POSITIVE
[2018-05-16 05:26] LABS: BASOPHILS % (AUTO) 0.2 %; HGB - HEMOGLOBIN 11.5 g/dL (14.0-18.0); LYMPHOCYTES # (AUTO) 1.3 10^3/uL (1.5-3.5); LYMPHOCYTES % (AUTO) 19.6 %; MEAN CORPUSCULAR HEMOGLOBIN 30.9 pg (27.0-31.0); MEAN CORPUSCULAR VOLUME 93.6 fL (80.0-94.0); MEAN PLATELET VOLUME 11.3 fL (7.4-11.4); MONOCYTES # (AUTO) 0.7 10^3/uL (0.0-1.0); NEUTROPHILS # (AUTO) 4.8 10^3/uL (1.5-6.6); NEUTROPHILS % (AUTO) 70.2 %; PLT - PLATELET COUNT 114 10^3/uL (130-450); RED BLOOD COUNT 3.72 10^6/uL (4.70-6.10); RED CELL DISTRIBUTION WIDTH 14.6 % (12.0-15.0); WHITE BLOOD COUNT 6.8 x10^3/uL (4.8-10.8)
[2018-05-16 05:27] LABS: CALCIUM 8.4 mg/dL (8.5-10.3); CREATININE 1.1 mg/dL (0.6-1.2)
[2018-05-16] MEDS: NITROGLYCERIN 2% PASTE TOP SCH ×3 (05:54→21:04)
[2018-05-16] MEDS: INSULIN ASPART 300 UNIT/3 ML PEN SUBQ SCH ×4 (08:43→20:55)
[2018-05-16] MEDS: CARVEDILOL 12.5 MG TABLET PO SCH ×2 (08:54→20:51)
[2018-05-16] MEDS: FAMOTIDINE 20 MG TABLET PO SCH (08:54)
[2018-05-16] MEDS: ASPIRIN EC 325 MG TABLET PO SCH (08:54)
[2018-05-16] MEDS: LOSARTAN 50 MG TABLET PO SCH ×2 (08:54→20:50)
[2018-05-16] MEDS: POLYETHYLENE GLYCOL 3350 17 GM PACKET PO SCH (08:56)
[2018-05-16] MEDS: SODIUM CHLORIDE FLUSH 0.9% 10 ML SYRINGE IVP SCH ×3 (08:56→20:54)
[2018-05-16] MEDS: INSULIN GLARGINE 300 UNIT/3 ML PEN SUBQ SCH ×2 (09:15→20:54)
--- NOTE | 2018-05-16 18:44 | PROVIDER PROGRESS NOTE ---
Subjective - Prog Note Date Prog Note Date: 05/16/18 Prog Note Time: 18:00 Current Medications - Current Medications Current Medications: Active Medications Generic Name Dose Route Start Last Admin Trade Name Freq PRN Reason Stop Dose Admin Aspirin 325 mg 05/14/18 22:00 05/16/18 08:54 Ecotrin PO 325 mg DAILY YAA Administration Carvedilol 12.5 mg 05/14/18 22:00 05/16/18 08:54 Coreg PO 12.5 mg BID YAA Administration Famotidine 20 mg 05/15/18 09:00 05/16/18 08:54 Pepcid PO 20 mg DAILY YAA Administration Insulin Aspart 3 - 11 unit 05/16/18 08:00 05/16/18 17:04 Novolog SUBQ 9 unit 0800,1200,1700,2100 YAA Administration Protocol Insulin Glargine 25 unit 05/16/18 09:00 05/16/18 09:15 Lantus Solostar SUBQ 25 unit BID YAA Administration Losartan Potassium 50 mg 05/15/18 09:00 05/16/18 08:54 Cozaar PO 50 mg BID AYA Administration Nitroglycerin 0.25 inch 05/14/18 22:00 05/16/18 13:30 Nitro-Bid (Pkt) TOP 0.25 inch Q8HR YAA Administration Polyethylene Glycol 17 gm 05/15/18 09:00 05/16/18 08:56 Miralax PO Not Given DAILY [facility] Prochlorperazine Edisylate 10 mg 05/14/18 11:20 Compazine Inj IVP Q6HR PRN Nausea / Vomiting Sodium Chloride 10 ml 05/14/18 17:00 05/16/18 17:08 Normal Saline Flush 0.9% IVP 10 ml 0100,0900,1700 YAA Administration Sodium Chloride 10 ml 05/14/18 11:20 Normal Saline Flush 0.9% IVP PRN PRN NEEDED PER PROVIDER ORDERS Simvastatin [Zocor] 20 mg PO QPM 03/31/13 Insulin Glargine,Hum.rec.anlog [Lantus] 25 units SUBQ BID 12/30/14 Carvedilol [Coreg] 12.5 mg PO BID 01/31/18 Pantoprazole [Protonix] 40 mg PO QDAC 01/31/18 Insulin Aspart [NovoLOG] 13 units SUBQ TIDWM 05/14/18 Losartan Potassium [Losartan Potassium] 50 mg PO BID 05/14/18 Objective - Vital Signs/Intake & Output Reviewed Vital Signs: Yes Vital Signs: Vital Signs x48h Pulse Resp BP Pulse Ox 05/16/18 18:00 68 17 148/77 H 92 05/16/18 17:00 57 L 14 181/75 H 92 05/16/18 16:00 71 18 181/66 H 92 05/16/18 15:00 64 13 148/54 H 91 L 05/16/18 14:00 69 18 112/49 L 92 05/16/18 13:00 64 15 137/103 H 92 05/16/18 12:00 56 L 16 150/51 H 98 05/16/18 11:00 67 14 130/58 L 99 Intake & Output: Intake & Output 05/13/18 05/14/18 05/15/18 05/16/18 23:59 23:59 23:59 23:59 Intake Total 2173.667 3810.683 800 Output Total 1750 2820 2265 Balance 423.667 990.683 -1465 - Objective General Appearance: positive: No acute distress, Lethargic Eyes Bilateral: positive: Normal inspection, PERRL, EOMI, No lid inflammation, Conjunctivae nml, No scleral icterus ENT: positive: ENT inspection nml, Pharynx nml, No signs of dehydration Neck: positive: Nml inspection, Thyroid nml, No JVD, Trachea midline. negative : Thyromegaly Respiratory: positive: Chest non-tender, No respiratory distress, Breath sounds nml. negative: Wheezes, Rales, Rhonchi Cardiovascular: positive: Regular rate & rhythm, No murmur, No gallop Abdomen: positive: Non-tender, No organomegaly, Nml bowel sounds, No distention. negative: Guarding, Rebound Back: positive: Nml inspection. negative: CVA tenderness (R), CVA tenderness (L ) Skin: positive: Color nml, No rash, Warm, Dry. negative: Cyanosis Extremities: positive: Non-tender, Full ROM, Nml appearance, Other (pt is s/p r bka) Neurologic/Psychiatric: positive: Oriented x3, CN's nml (2-12), Motor nml, Sensation nml, Mood/affect nml - Lab Results Fish Bones: 05/16/18 04:51 05/16/18 04:51 Other Labs: Lab Results x24hrs 05/16/18 05/16/18 05/16/18 Range/Units 04:51 04:51 00:18 WBC 6.8 (4.8-10.8) x10^3/uL RBC 3.72 L (4.70-6.10) 10^6/uL Hgb 11.5 L (14.0-18.0) g/dL Hct 34.8 L (42.0-52.0) % MCV 93.6 (80.0-94.0) fL MCH 30.9 (27.0-31.0) pg MCHC 33.0 (32.0-36.0) g/dL RDW 14.6 (12.0-15.0) % Plt Count 114 L (130-450) 10^3/uL MPV 11.3 (7.4-11.4) fL Neut # (Auto) 4.8 (1.5-6.6) 10^3/uL Lymph # (Auto) 1.3 L (1.5-3.5) 10^3/uL [place] # (Auto) 0.7 (0.0-1.0) 10^3/uL Eos # (Auto) 0.0 (0.0-0.7) 10^3/uL Baso # (Auto) 0.0 (0.0-0.1) 10^3/uL Absolute Nucleated RBC 0.01 x10^3/uL Nucleated RBC % 0.1 /100WBC Sodium 145 (135-145) mmol/L Potassium 4.1 (3.5-5.0) mmol/L Chloride 115 H (101-111) mmol/L Carbon Dioxide 25 (21-32) mmol/L Anion Gap 5.0 L (6-13) BUN 45 H (6-20) mg/dL Creatinine 1.1 (0.6-1.2) mg/dL Estimated GFR (MDRD) 64 L (>89) Glucose 366 H (70-100) mg/dL Calcium 8.4 L (8.5-10.3) mg/dL Troponin I 2.68 H* (<0.49) ng/mL ABX Reporting Has patient been on IV antibiotics over the past 48 hours?: Yes Assessment/Plan - Problem List (1) Acute myocardial infarction Impression: We have been running troponin levels every 6 hours since the patient was admitted and found that his troponin went from an initial value of 0.19 up to 1.99, then 8.9 then to a high of 11.9. It is now trending downward at 2.68. We have placed the patient on Nitropaste and a beta-ryan, and his spironolactone was stopped. An echocardiogram showed no wall motion abnormalities and was only positive for mild to moderate left ventricular hypertrophy. (2) Congestive heart failure (CHF) Impression: Patient does not know if he has a history of congestive heart failure but is on Coreg 12.5 mg twice a day. When we saw the patient was having a heart attack we ordered an echocardiogram which has come back essentially normal. There are no signs of wall motion abnormalities or congestive heart failure seen on the echocardiogram done yesterday. The patient has been hypertensive and so I will increase the Coreg to 25 mg twice a day. (3) DKA (diabetic ketoacidoses) Impression: Resolved. Patient's blood sugars have normalized from a high of 984 on admission. He is now off of the insulin drip and on Lantus with a sliding scale for coverage. He is no longer acidotic nor is he producing ketones. 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 Despite this his blood sugars have been fairly well-managed however it does appears that the patient is declining and now requires assistance with his medications. He is currently living in an independent living apartment in which there are retirement facility beds available. The family will discuss amongst themselves and come up with a plan. No matter what I believe that the patient needs help with his medications at the very least. At the present time the patient is receiving Lantus and is on sliding scale coverage. (5) Gastroesophageal reflux disease Impression: The patient has a history of gastroesophageal reflux disease and takes Protonix at home. We will continue this while he is inpatient. (6) HTN (hypertension) Impression: The patient has been started on his losartan which he takes at home however has been hypertensive. I have increased the Coreg from 12.5 twice daily to 25 twice daily to try to help the patient's blood pressure normalize. Qualifiers: Hypertension type: essential hypertension Qualified Code(s): I10 - Essential (primary) hypertension
[2018-05-17 05:08] LABS: BASOPHILS % (AUTO) 0.3 %; CALCIUM 8.3 mg/dL (8.5-10.3); EOSINOPHILS % (AUTO) 0.2 %; HGB - HEMOGLOBIN 11.5 g/dL (14.0-18.0); LYMPHOCYTES # (AUTO) 1.4 10^3/uL (1.5-3.5); LYMPHOCYTES % (AUTO) 23.3 %; MEAN CORPUSCULAR HEMOGLOBIN 31.2 pg (27.0-31.0); MEAN CORPUSCULAR HGB CONC 33.6 g/dL (32.0-36.0); MEAN CORPUSCULAR VOLUME 92.8 fL (80.0-94.0); MEAN PLATELET VOLUME 11.2 fL (7.4-11.4); MONOCYTES # (AUTO) 0.6 10^3/uL (0.0-1.0); MONOCYTES % (AUTO) 9.5 %; NEUTROPHILS # (AUTO) 4.2 10^3/uL (1.5-6.6); NEUTROPHILS % (AUTO) 66.7 %; PLT - PLATELET COUNT 119 10^3/uL (130-450); RED BLOOD COUNT 3.68 10^6/uL (4.70-6.10); RED CELL DISTRIBUTION WIDTH 14.6 % (12.0-15.0); WHITE BLOOD COUNT 6.2 x10^3/uL (4.8-10.8)
[2018-05-17] MEDS: NITROGLYCERIN 2% PASTE TOP SCH ×3 (06:05→22:05)
[2018-05-17 07:46] LABS: MAGNESIUM 2.3 mg/dL (1.7-2.8); PHOSPHORUS 1.8 mg/dL (2.5-4.6)
[2018-05-17] MEDS: INSULIN ASPART 300 UNIT/3 ML PEN SUBQ SCH ×4 (07:59→21:11)
[2018-05-17] MEDS: POLYETHYLENE GLYCOL 3350 17 GM PACKET PO SCH (09:09)
[2018-05-17] MEDS: FAMOTIDINE 20 MG TABLET PO SCH (09:09)
[2018-05-17] MEDS: ASPIRIN EC 325 MG TABLET PO SCH (09:09)
[2018-05-17] MEDS: CARVEDILOL 12.5 MG TABLET PO SCH ×2 (09:09→21:10)
[2018-05-17] MEDS: SODIUM CHLORIDE FLUSH 0.9% 10 ML SYRINGE IVP SCH ×2 (09:09→17:23)
[2018-05-17] MEDS: LOSARTAN 50 MG TABLET PO SCH ×2 (09:09→21:10)
[2018-05-17] MEDS: INSULIN GLARGINE 300 UNIT/3 ML PEN SUBQ SCH ×2 (09:14→21:10)
[2018-05-17] MEDS: NEUTRA-PHOS 250 MG TABLET PO SCH ×3 (12:30→17:58)
--- NOTE | 2018-05-17 18:19 | PROVIDER PROGRESS NOTE ---
Subjective - Prog Note Date Prog Note Date: 05/17/18 Prog Note Time: 12:20 - Subjective Subjective: The patient is somnolent but easily arousable. If he has no stimulation however he goes right back to sleep. He denies any fevers or chills and says he has no pain at this time. Current Medications - Current Medications Current Medications: Active Medications Generic Name Dose Route Start Last Admin Trade Name Freq PRN Reason Stop Dose Admin Aspirin 325 mg 05/14/18 22:00 05/17/18 09:09 Ecotrin PO 325 mg DAILY YAA Administration Carvedilol 25 mg 05/16/18 18:45 05/17/18 09:09 Coreg PO 25 mg BID YAA Administration Famotidine 20 mg 05/15/18 09:00 05/17/18 09:09 Pepcid PO 20 mg DAILY YAA Administration Insulin Aspart 3 - 11 unit 05/16/18 08:00 05/17/18 17:22 Novolog SUBQ 9 unit 0800,1200,1700,2100 YAA Administration Protocol Insulin Glargine 25 unit 05/16/18 09:00 05/17/18 09:14 Lantus Solostar SUBQ 25 unit BID YAA Administration Losartan Potassium 50 mg 05/15/18 09:00 05/17/18 09:09 Cozaar PO 50 mg BID YAA Administration Nitroglycerin 0.25 inch 05/14/18 22:00 05/17/18 13:59 Nitro-Bid (Pkt) TOP 0.25 inch Q8HR YAA Administration Polyethylene Glycol 17 gm 05/15/18 09:00 05/17/18 09:09 Miralax PO Not Given DAILY YAA Prochlorperazine Edisylate 10 mg 05/14/18 11:20 Compazine Inj IVP Q6HR PRN Nausea / Vomiting Sodium Chloride 10 ml 05/14/18 17:00 05/17/18 17:23 Normal Saline Flush 0.9% IVP 10 ml 0100,0900,1700 YAA Administration Sodium Chloride 10 ml 05/14/18 11:20 Normal Saline Flush 0.9% IVP PRN PRN NEEDED PER PROVIDER ORDERS Sodium Phosphate 250 mg 05/17/18 11:00 05/17/18 17:58 K-Phos Neutral PO 250 mg TIDWM YAA Administration Simvastatin [Zocor] 20 mg PO QPM 03/31/13 Insulin Glargine,Hum.rec.anlog [Lantus] 25 units SUBQ BID 12/30/14 Carvedilol [Coreg] 12.5 mg PO BID 01/31/18 Pantoprazole [Protonix] 40 mg PO QDAC 01/31/18 Insulin Aspart [NovoLOG] 13 units SUBQ TIDWM 05/14/18 Losartan Potassium [Losartan Potassium] 50 mg PO BID 05/14/18 Objective - Vital Signs/Intake & Output Reviewed Vital Signs: Yes Vital Signs: Vital Signs x48h Temp Pulse Resp BP Pulse Ox 05/17/18 16:42 68 14 154/72 H 93 05/17/18 13:00 36.4 C L 60 16 120/47 L 96 Intake & Output: Intake & Output 05/14/18 05/15/18 05/16/18 05/17/18 23:59 23:59 23:59 23:59 Intake Total 2173.667 3810.683 1750 1600 Output Total 1750 2820 2620 1325 Balance 423.667 990.683 -870 275 - Objective General Appearance: positive: No acute distress, Lethargic Eyes Bilateral: positive: Normal inspection, PERRL, EOMI, No lid inflammation, Conjunctivae nml, No scleral icterus ENT: positive: ENT inspection nml, Pharynx nml, No signs of dehydration Neck: positive: Nml inspection, Thyroid nml, No JVD, Trachea midline. negative : Thyromegaly Respiratory: positive: Chest non-tender, No respiratory distress, Breath sounds nml. negative: Wheezes, Rales, Rhonchi Cardiovascular: positive: Regular rate & rhythm, No murmur, No gallop Abdomen: positive: Non-tender, No organomegaly, Nml bowel sounds, No distention. negative: Guarding, Rebound Back: positive: Nml inspection. negative: CVA tenderness (R), CVA tenderness (L ) Skin: positive: Color nml, No rash, Warm, Dry. negative: Cyanosis Extremities: positive: Non-tender, Full ROM, No pedal edema, Other (Patient is status post right below-knee amputation). negative: Joint swelling Neurologic/Psychiatric: positive: Oriented x3, CN's nml (2-12), Motor nml, Sensation nml, Mood/affect nml - Lab Results Fish Bones: 05/17/18 04:55 05/17/18 04:55 Other Labs: Lab Results x24hrs 05/17/18 05/17/18 05/17/18 Range/Units 04:55 04:55 04:55 WBC 6.2 (4.8-10.8) x10^3/uL RBC 3.68 L (4.70-6.10) 10^6/uL Hgb 11.5 L (14.0-18.0) g/dL Hct 34.2 L (42.0-52.0) % MCV 92.8 (80.0-94.0) fL MCH 31.2 H (27.0-31.0) pg MCHC 33.6 (32.0-36.0) g/dL RDW 14.6 (12.0-15.0) % Plt Count 119 L (130-450) 10^3/uL MPV 11.2 (7.4-11.4) fL Neut # (Auto) 4.2 (1.5-6.6) 10^3/uL Lymph # (Auto) 1.4 L (1.5-3.5) 10^3/uL Parker # (Auto) 0.6 (0.0-1.0) 10^3/uL Eos # (Auto) 0.0 (0.0-0.7) 10^3/uL Baso # (Auto) 0.0 (0.0-0.1) 10^3/uL Absolute Nucleated RBC 0.00 x10^3/uL Nucleated RBC % 0.0 /100WBC Sodium 142 (135-145) mmol/L Potassium 3.7 (3.5-5.0) mmol/L Chloride 108 (101-111) mmol/L Carbon Dioxide 30 (21-32) mmol/L Anion Gap 4.0 L (6-13) BUN 36 H (6-20) mg/dL Creatinine 1.0 (0.6-1.2) mg/dL Estimated GFR (MDRD) 71 L (>89) Glucose 247 H (70-100) mg/dL Calcium 8.3 L (8.5-10.3) mg/dL Phosphorus 1.8 L (2.5-4.6) mg/dL Magnesium 2.3 (1.7-2.8) mg/dL ABX Reporting Has patient been on IV antibiotics over the past 48 hours?: No Assessment/Plan - Problem List (1) Acute myocardial infarction Impression: We have been running troponin levels every 6 hours since the patient was admitted and found that his troponin went from an initial value of 0.19 up to 1.99, then 8.9 then to a high of 11.9. It is now trending downward at 2.68. We have placed the patient on Nitropaste and a beta-ryan, and his spironolactone was stopped. An echocardiogram showed no wall motion abnormalities and was only positive for mild to moderate left ventricular hypertrophy. I transferred the patient to medical surgical floor from the intensive care unit today. (2) Congestive heart failure (CHF) Impression: Patient does not know if he has a history of congestive heart failure but is on Coreg 12.5 mg twice a day. When we saw the patient was having a heart attack we ordered an echocardiogram which has come back essentially normal. There are no signs of wall motion abnormalities or congestive heart failure seen on the echocardiogram done yesterday. The patient has been hypertensive and so I increased the Coreg to 25 mg twice a day, which has been effective. (3) DKA (diabetic ketoacidoses) Impression: Resolved. Patient's blood sugars have normalized from a high of 984 on admission. He is now off of the insulin drip and on Lantus with a sliding scale for coverage. He is no longer acidotic nor is he producing ketones. Qualifiers: Diabetes mellitus type: type 1 Diabetes mellitus complication detail: without coma Qualified Code(s): E10.10 - Type 1 diabetes mellitus with ketoacidosis without coma (4) Type 2 diabetes mellitus Impression: The patient is a long history of type 2 diabetes mellitus and is now insulin- dependent. Despite this his blood sugars have been fairly well-managed however it does appears that the patient is declining and now requires assistance with his medications. He is currently living in an independent living apartment in which there are senior living facility beds available. The family will discuss amongst themselves and come up with a plan. No matter what, I believe that the patient needs help with his medications at the very least and have discussed this with his case workers and social workers for placement at discharge. At the present time the patient is receiving Lantus and is on sliding scale coverage. (5) Gastroesophageal reflux disease Impression: The patient has a history of gastroesophageal reflux disease and takes Protonix at home. We will continue this while he is inpatient. (6) HTN (hypertension) Impression: The patient has been started on his losartan which he takes at home however has been hypertensive. I have increased the Coreg from 12.5 twice daily to 25 twice daily to try to help the patient's blood pressure normalize, and this has been mostly effective. Qualifiers: Hypertension type: essential hypertension Qualified Code(s): I10 - Essential (primary) hypertension
[2018-05-17] MEDS ORDERED: INSULIN GLARGINE 300 UNIT/3 ML PEN SUBQ SCH (23:40)
[2018-05-18] MEDS: SODIUM CHLORIDE FLUSH 0.9% 10 ML SYRINGE IVP SCH ×2 (00:01→08:01)
[2018-05-18] MEDS ORDERED: COD LIVER OIL/ZINC OXIDE 113 GM TUBE TOP PRN (03:30)
[2018-05-18] MEDS ORDERED: MIN OIL/DIMETHICON/COCONUT OIL 92 GM TUBE TOP PRN (03:53)
[2018-05-18] MEDS: NITROGLYCERIN 2% PASTE TOP SCH (06:03)
[2018-05-18 06:26] LABS: MEAN CORPUSCULAR HEMOGLOBIN 31.4 pg (27.0-31.0); MEAN CORPUSCULAR HGB CONC 33.6 g/dL (32.0-36.0); MEAN CORPUSCULAR VOLUME 93.5 fL (80.0-94.0); MEAN PLATELET VOLUME 11.2 fL (7.4-11.4); RED BLOOD COUNT 3.51 10^6/uL (4.70-6.10); RED CELL DISTRIBUTION WIDTH 14.7 % (12.0-15.0); WHITE BLOOD COUNT 7.3 x10^3/uL (4.8-10.8)
[2018-05-18 06:28] LABS: KETONES, SERUM (ACETEST) NEGATIVE (NEGATIVE)
[2018-05-18 06:35] LABS: ALBUMIN 2.5 g/dL (3.2-5.5); ALBUMIN/GLOBULIN RATIO 1.1 (1.0-2.2); ALKALINE PHOSPHATASE 58 IU/L (42-121); ALT ALANINE AMINOTRANSFERASE 40 IU/L (10-60); AST ASPARTATE AMINOTRANSFERASE 37 IU/L (10-42); BUN - BLOOD UREA NITROGEN 40 mg/dL (6-20); CARBON DIOXIDE - CO2 29 mmol/L (21-32); CHLORIDE 106 mmol/L (101-111); GFR - MDRD 71 (>89); GLUCOSE 208 mg/dL (70-100); SODIUM 139 mmol/L (135-145); TOTAL PROTEIN 4.8 g/dL (6.7-8.2)
[2018-05-18] MEDS: INSULIN ASPART 300 UNIT/3 ML PEN SUBQ SCH ×2 (07:58→12:17)
[2018-05-18] MEDS: NEUTRA-PHOS 250 MG TABLET PO SCH ×2 (07:59→12:19)
[2018-05-18] MEDS: FAMOTIDINE 20 MG TABLET PO SCH (08:00)
[2018-05-18] MEDS: CARVEDILOL 12.5 MG TABLET PO SCH (08:00)
[2018-05-18] MEDS ORDERED: POTASSIUM CHLORIDE 20 MEQ TABLET PO ONE (08:00)
[2018-05-18] MEDS: ASPIRIN EC 325 MG TABLET PO SCH (08:00)
[2018-05-18] MEDS: LOSARTAN 50 MG TABLET PO SCH (08:01)
[2018-05-18] MEDS: POLYETHYLENE GLYCOL 3350 17 GM PACKET PO SCH (08:01)
--- NOTE | 2018-05-18 10:52 | DISCHARGE SUMMARY ---
Discharge Summary Admit Date: 05/14/18 Discharge Date: 05/18/18 Discharging Provider: Pinky Baumann DO Primary Care Provider: Michael Bullard MD Code Status: Do Not Attempt Resuscitation Condition at Discharge: Fair Discharge Disposition: 03 SNF DC/Xfer Discharge [facility]: [facility] - DIAGNOSES Admission Diagnoses: 1. Diabetic ketoacidosis 2. Type 2 diabetes mellitus 3. Gastroesophageal reflux disease 4. Congestive heart failure 5. Hypertension Discharge Diagnoses with Status of Each Condition: 1. Acute myocardial infarction- Shortly after admission the patient serial troponins were positive for acute myocardial infarction. The troponin level went as high as 11. An echocardiogram Showed only mild concentric left ventricular hypertrophy and no wall motion abnormalities. Ejection fraction was 70%.This means that the patient's myocardial infarction was most likely transmural in nature. It is been trending downward since then and is 0.89 today. 2. Diabetic ketoacidosis- Resolved, most likely due to noncompliance with medication regimen the patient had been living alone in an independent living apartment. At this point in time he is very forgetful and I am very concerned that the patient may no longer be able to live in an independent living facility. At the very least he needs someone to manage his medications. 3. Type 2 diabetes mellitus - The patient's blood sugars have been well managed with the use of a sliding scale and basal insulin. We will continue this on discharge. 4. Gastroesophageal reflux disease - The patient has a history of gastroesophageal reflux disease and has been taking Protonix at home. He will continue this on discharge. 5. Congestive heart failure- There was no known history of congestive heart failure however the patient came in on Coreg 12.5 mg twice a day. Again, his echocardiogram shows no evidence of CHF at this time. 6. Hypertension- The patient has been on his home dosing of losartan and increased dosing of Coreg while he has been in the hospital and his blood pressures have been well managed. We will send him home on the new dosing regimen. - HPI History of Present Illness: Mr. 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 Mr. White relates that he may have been too confused to take his diabetes medications properly feels like he has been getting worse daily. On presentation to the emergency department the patient had blood sugar of 984. His pH was 7.178 and his lab work showed moderate ketones. He is also found to be mildly hyponatremic and hyperkalemic. His creatinine, which typically runs around 1.0, was 2.2 with an elevated BUN of 76 indicating significant dehydration. He was also found to have low calcium levels and elevated phosphorus. We will admit him to the intensive care unit on insulin drip for diabetic ketoacidosis and address his multiple comorbidities while he is here. We will correct all electrolyte abnormalities and when he is stable enough transfer him to the medical floor. - HOSPITAL COURSE Hospital Course: Mr. Onur White presented to the emergency department on May 14, 2018 in diabetic ketoacidosis. This was corrected within about 24 hours. Among the tests done in the ED was a troponin which did not come back normal but was not positive for an MRI. Accordingly we continued with serial troponins and 12 hours later the patient's troponin level was 11, positive for a acute myocardial infarction. Subsequent echocardiogram failed to show any wall motion abnormalities and only showed mild concentric left ventricular hypertrophy with an ejection fraction of 70%. The patient is not interested in angiogram at this time. We will discharge him home on a baby aspirin and his home medication regimens. He will follow-up with his primary care provider and obtain a technology education teacher. - ALLERGIES Allergies/Adverse Reactions: Allergies Allergy/AdvReac Type Severity Reaction Status Date / Time cortisone [Cortisone] AdvReac Intermediate Respiratory Verified 05/14/18 10:08 - MEDICATIONS Home Medications: Ambulatory Orders Medication Instructions Recorded Confirmed Simvastatin [Zocor] 20 mg PO QPM 03/31/13 05/14/18 Insulin Glargine,Hum.rec.anlog 25 units SUBQ BID 12/30/14 01/31/18 [Lantus] Carvedilol [Coreg] 12.5 mg PO BID 01/31/18 05/14/18 Pantoprazole [Protonix] 40 mg PO QDAC 01/31/18 05/14/18 Insulin Aspart [NovoLOG] 13 units SUBQ TIDWM 05/14/18 Losartan Potassium [Losartan 50 mg PO BID 05/14/18 05/14/18 Potassium] - PHYSICAL EXAM AT DISCHARGE General Appearance: positive: No acute distress, Alert Eyes Bilateral: positive: Normal inspection, PERRL, EOMI, No lid inflammation, Conjunctivae nml, No scleral icterus ENT: positive: ENT inspection nml, Pharynx nml, No signs of dehydration Neck: positive: Nml inspection, Thyroid nml, No JVD, Trachea midline. negative : Thyromegaly Respiratory: positive: Chest non-tender, No respiratory distress, Breath sounds nml. negative: Wheezes, Rales, Rhonchi Cardiovascular: positive: Regular rate & rhythm, No murmur, No gallop Peripheral Pulses: positive: 1+ Abdomen: positive: Non-tender, No organomegaly, Nml bowel sounds, No distention. negative: Guarding, Rebound Back: positive: Nml inspection. negative: CVA tenderness (R), CVA tenderness (L ) Skin: positive: Color nml, No rash, Warm, Dry. negative: Cyanosis Extremities: positive: Non-tender, Full ROM, Other (Patient is status post right BKA) Neurologic/Psychiatric: positive: Oriented x3, CN's nml (2-12), Motor nml, Sensation nml, Mood/affect nml - LABS Result Diagrams: 05/18/18 05:49 05/18/18 05:49 - FOLLOW UP Follow Up: Follow-up with Dr. Bullard and obtain a technology education teacher next week. - TIME SPENT Time Spent in Discharge (Minutes): 35
--- NOTE | 2018-05-18 11:11 | Discharge Plan ---
"Discharge Plan for SNF / [facility] - DC Plan and Transition Orders Disposition: 03 SNF DC/Xfer Condition: Fair SNF Transition Orders: Admit to: [facility] under the care of Dr Ashton Discharge Diagnosis: acute myocardial infarction, DKA Medicare Certification: I certify that Post Hospital residential care is medically necessary on a continuing basis for any of the conditions for which she/he is receiving care during hospitalization. Notify PCP of admission and forward orders to primary provider for signature. Weight on admission and weekly. Call PCP immediately if weight increases by 5 pounds or if patient develops dyspnea, chest pain/tightness or edema. House Bowel Program: yes If no BM after 2 days, nurse may give M.O.M. 30ml PO PRN and /or ducolax Supp 1 LA and /or KRISTAN 250mg P.O., and/or senna 1-2 tabs PO. On day 3 nurse may give repeat above order until residents constipation is resolved. Immunizations: Annual Influenza Vaccine: yes. (between Jun 13 and January 10.) Unless allergy or already given Two-Step PPD: yes per [employer] [phone] or appropriate documentation of approved exceptions Oxygen Orders: 2 L/m PRN dyspnea Medications: PLEASE REFER TO THE DISCHARGE MEDICATION LIST. Insulin Orders? yes Diagnosis: Diabetes Initiate hypo and hyperglycemia protocols for BG <70 and BG >375. May check BG prn for signs/symptoms of dysglycemia. Frequency of BG checks: AC/HS Basal Insulin: Lantus 100 units / ml inject subq as follows: 30 units BID Correction Insulin: - Select the type of insulin below Novolog 100 units /ml insulin inject subq per orders indicate below [] LOW DOSE [] MODERATE DOSE [] MODERATE/HIGH DOSE [] HIGH DOSE GB UNITS GB UNITS GB UNITS GB UNITS 61-140 0 UNITS 61-140 0 UNITS 61-140 0 UNITS 61-140 0 UNITS 141-175 1 UNITS 141-175 1 UNITS 141-175 2 UNITS 141-175 3 UNITS 176-225 2 UNITS 176-225 3 UNITS 176-225 4 UNITS 176-225 5 UNITS 226-275 3 UNITS 226-275 5 UNITS 226-275 6 UNITS 226-275 7 UNITS 276-325 4 UNITS 276-325 7 UNITS 276-325 8 UNITS 276-325 9 UNITS 326-375 5 UNITS 326-375 9 UNITS 326-375 10 UNITS 326-375 11 UNITS >375 CONTACT MD >375 CONTACT MD >375 CONTACT MD >375 CONTACT MD Allergies and Adverse Reactions: Allergies Allergy/AdvReac Type Severity Reaction Status Date / Time cortisone [Cortisone] AdvReac Intermediate Respiratory Verified 05/14/18 10:08 - Medications New Prescriptions: Aspirin EC [Ecotrin] 81 mg PO DAILY #15 tablet - Diet Type: Diabetic/ Carb Control Texture: Regular Liquids: Thin May have monthly special meal: Yes - Therapies | Activity Therapy: Evaluation | Treat if indicated: PT, OT Rehabilitation Potential: Maximize functional status Activity: Activity as Tolerated Weight Bearing: Full Weight Follow Up: Follow-up with Dr. Bullard and a fish stringer assembler of your choice next week"
[2018-05-18 12:01] VITALS: BP 124/53
== END 2018-05-18 13:27 | DRG 637 ==
LOC: EDBD → EDUNIT# → ED 09:54 → ICU 11:20
PROVIDERS: ADMIT Hospitalist; ATTEND Hospitalist
DX: E11.10 Type 2 diabetes mellitus with ketoacidosis without coma (principal); I21.9 Acute myocardial infarction, unspecified; E87.1 Hypo-osmolality and hyponatremia; Z79.4 Long term (current) use of insulin; Z89.441 Acquired absence of right ankle; Z91.14 Patient's other noncompliance with medication regimen; E86.0 Dehydration; E87.5 Hyperkalemia; K21.9 Gastro-esophageal reflux disease without esophagitis; Z66 Do not resuscitate; Z79.82 Long term (current) use of aspirin; I11.0 Hypertensive heart disease with heart failure; I50.9 Heart failure, unspecified
CPT/HCPCS: 36415; 36600; 51701; 71045; 80048; 80053; 80061; 81001; 81003; 82009; 82310; 82374; 82565; 82803; 82947; 83036; 83721; 83735; 83880; 84100; 84132; 84295; 84484; 84520; 85025; 85027; 87086; 87150; 93005; 93306; 96360; 99284